=== PATIENT | male | born 1960 | race American Indian/Alaskan Native ===

== ENCOUNTER 2016-12-05 17:34 | Inpatient (IN) | payer MEDICARE ==
[2016-12-05 18:18] LABS: Basophils % (Auto) 2.3 % (0.0-1.8); Eosinophils % (Auto) 0.2 % (0.0-4.3); Hematocrit 25.5 % (35.5-45.6); Hemoglobin 7.5 gm/dl (11.8-15.2); Mean Corpuscular HGB Conc 30 % (32-34); Platelet Count 252 K/mm3 (140-440); White Blood Count 6.1 K/mm3 (4.5-11.0)
[2016-12-05 18:27] LABS: INR 1.2 (0.87-1.13)
[2016-12-05 18:28] LABS: Partial Thromboplastin Time 36.3 Sec. (24.2-36.6)
[2016-12-05 18:37] LABS: Mean Corpuscular Hemoglobin 18 pg (28-32); Mean Corpuscular Volume 59 fl (84-94); Red Cell Distribution Width 23.9 % (13.2-15.2)
[2016-12-05 18:46] LABS: Anion Gap 23 mmol/L; BUN/Creatinine Ratio 8.57; Blood Urea Nitrogen 6 mg/dL (9-20); Calcium 8.6 mg/dL (8.4-10.2); Carbon Dioxide 24 mmol/L (22-30); Chloride 96.2 mmol/L (98-107); Creatine Kinase 178 units/L (55-170); Glucose 83 mg/dL (75-100); Potassium 3.4 mmol/L (3.6-5.0); Sodium 140 mmol/L (137-145)
[2016-12-05] MEDS ORDERED: NACL ONE (21:48)
[2016-12-05] MEDS ORDERED: ATIVAN IV ONE (21:57)
[2016-12-05] MEDS ORDERED: BABY ASPIRIN PO ONE (22:03)
--- NOTE | 2016-12-05 22:07 | Emergency Department Report ---
ED Chest Pain HPI - General Chief Complaint: Chest Pain Stated Complaint: CHEST PAIN /SOB Time Seen by Provider: 12/05/16 21:08 Source: patient Mode of arrival: Ambulatory Limitations: No Limitations - History of Present Illness Initial Comments: Patient is a 66-year-old male with a history of PE on pradaxa, alcoholism, HTN, HLD, who presents to the ED for chest pain. Patient reports chest pain started yesterday as intermittent in sharp chest pain but now has progressed to constant substernal chest pain with radiation to the right shoulder associated shortness of breath. Exacerbated with movement and deep inspiration. Patient reports he is supposed to be taking Pradaxa daily for a PE he was diagnosed with last year, but has been noncompliant and takes it once every few days. Patient is also a alcoholic who reports drinking 4 beers today. Patient has been in withdrawal and has had seizures in the past from alcoholism. His last dose was this morning. Otherwise no fevers, headaches, chills, nausea, vomiting , back pain, abdominal pain, extremity pain, travel, or sick contacts. Severity scale (0 -10): 8 - Related Data Previous Rx's Medication Instructions Recorded Last Taken Type Cholecalciferol Vit D3 [Vitamin D3] 1,000 unit PO QDAY #30 tablet 06/26/1507/07 Rx Ferrous Sulfate [Feosol 325 MG tab] 325 mg PO BID #60 tablet 06/26/15 06/16/16 Rx Hydrochlorothiazide [HCTZ] 12.5 mg PO QDAY #30 capsule 06/26/15 06/16/16 Rx Famotidine [Pepcid] 20 mg PO DAILY #5 tablet 10/10/15 Unknown Rx Dabigatran [Pradaxa] 150 mg PO BID #60 capsule 06/20/16 06/16/16 Rx Hydrocortisone 2.5% [Proctosol-Hc] 1 applic TN Q8H PRN #20 tube 06/20/16 Unknown Rx HYDROcodone/APAP 10-325 [[place] 10 mg PO DAILY #7 tablet 06/30/16 Unknown Rx 10-325 mg TAB] Allergies Allergy/AdvReac Type Severity Reaction Status Date / Time Penicillins Allergy Swelling Verified 07/07/15 12:24 sildenafil citrate Allergy Swelling Verified 07/07/15 12:24 [From Viagra] simvastatin Allergy Swelling Verified 07/07/15 12:24 [place] score - [place] Score Age > 65: (0) No Aspirin use within the Past 7 Days: (0) No 3 or more CAD Risk Factors: (1) Yes 2 or more Angina events in past 24 hrs: (1) Yes Known CAD with more than 50% Stenosis: (0) No Elevated Cardiac Markers: (0) No ST Deviation Greater than 0.5mm: (0) No [place] Score: 2 ED Review of Systems ROS: Stated complaint: CHEST PAIN /SOB Other details as noted in HPI Comment: All other systems reviewed and negative ED Past Medical Hx - Past Medical History Hx Hypertension: Yes Hx Congestive Heart Failure: No Hx Diabetes: No Hx Deep Vein Thrombosis: Yes Hx Pulmonary Embolism: Yes Hx Arthritis: Yes Hx Psychiatric Treatment: Yes (PTSD/ DEPRESSION) Hx Asthma: No Hx COPD: No Additional medical history: Alcohol dependence. diverticulitis. fibromyalgia - Surgical History Hx Cholecystectomy: Yes Additional Surgical History: gastric bypass surgery. 2011. 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 - Social History Smoking Status: Never Smoker Substance Use Type: Alcohol - Medications Home Medications: Home Medications Medication Instructions Recorded Confirmed Last Taken Type Cholecalciferol Vit D3 [Vitamin D3] 1,000 unit PO QDAY #30 tablet 06/26/1512/0507/07/15 Rx Ferrous Sulfate [Feosol 325 MG tab] 325 mg PO BID #60 tablet 06/26/15 12/05/16 06/16/16 Rx Hydrochlorothiazide [HCTZ] 12.5 mg PO QDAY #30 capsule 06/26/15 12/05/16 Rx Famotidine [Pepcid] 20 mg PO DAILY #5 tablet 10/10/15 12/05/16 Unknown Rx Dabigatran [Pradaxa] 150 mg PO BID #60 capsule 06/20/16 12/05/16 06/16/16 Rx Hydrocortisone 2.5% [Proctosol-Hc] 1 applic TN Q8H PRN #20 tube 06/20/16 Unknown Rx HYDROcodone/APAP 10-325 [[place] 10 mg PO DAILY #7 tablet 06/30/16 12/05/16 Unknown Rx 10-325 mg TAB] ED Physical Exam - General Limitations: No Limitations General appearance: alert, in no apparent distress - Head Head exam: Present: atraumatic, normocephalic - Eye Eye exam: Present: normal appearance - ENT ENT exam: Present: mucous membranes moist - Neck Neck exam: Present: normal inspection - Respiratory Respiratory exam: Present: normal lung sounds bilaterally. Absent: respiratory distress, wheezes, rales, rhonchi, stridor - Cardiovascular Cardiovascular Exam: Present: regular rate, normal rhythm, normal heart sounds. Absent: irregular rhythm, systolic murmur, diastolic murmur, rubs, gallop - GI/Abdominal GI/Abdominal exam: Present: soft, normal bowel sounds - Rectal Rectal exam: Present: deferred - exam: Present: normal inspection, other (Rectal: Hemoccult: NEGATIVE, brown stool) External exam: Present: normal external exam - Extremities Exam Extremities exam: Present: normal inspection - Back Exam Back exam: Present: normal inspection - Neurological Exam Neurological exam: Present: alert, oriented X3 - Psychiatric Psychiatric exam: Present: normal affect, normal mood - Skin Skin exam: Present: warm, dry, intact, normal color. Absent: rash ED Course Vital Signs 12/05/16 12/05/16 12/05/16 17:52 21:45 22:21 Temperature 97.9 F Pulse Rate 98 H 91 H Respiratory 20 21 Rate Blood Pressure 123/85 142/85 O2 Sat by Pulse 100 98 98 Oximetry ED Medical Decision Making - Lab Data Result diagrams: 12/05/16 18:08 12/05/16 18:08 - EKG Data -: EKG Interpreted by Me (17:44) EKG shows normal: sinus rhythm, axis (normal axis), intervals (UTC 485 ms), ST- T waves (no ST changes, no STEMI) Rate: normal (96 bpm) - Radiology Data Radiology results: report reviewed - Medical Decision Making results of CTA discussed with the patient and family. pt now aware of borderline aneurysmal dilation, hgb of 7.5 Pt still c/o chest pain, ordered nitro SL, and PRN morphine if needed after SL nitro. Critical care attestation.: If time is entered above; I have spent that time in minutes in the direct care of this critically ill patient, excluding procedure time. ED Disposition Clinical Impression: Chest pain, Dyspnea, Anemia Disposition: OP ADMITTED IP TO THIS HOSP Is pt being admited?: Yes Condition: Stable
--- NOTE | 2016-12-05 22:52 | Cat Scan Report ---
FINAL REPORT PROCEDURE: CT ANGIO CHEST TECHNIQUE: Computerized tomographic angiography of the chest was performed during the IV injection of iodinated nonionic contrast including image processing. The image data was postprocessed using 2-dimensional multiplanar reformatted (MPR) and 3-dimensional (MIP and/or volume rendered) techniques. HISTORY: chest pain COMPARISON: Prior CT scan of the chest 05/14/2015 FINDINGS: Pulmonary outflow tract, right and left main pulmonary arteries and their proximal branches: Clear, no filling defects seen to suggest pulmonary embolus. Pericardium: No evidence of pericardial effusion. Thoracic aorta: There is mild prominence of the ascending thoracic aorta measuring 4 centimeter x 3.9 centimeter. No dissection is visualized. Coronary arteries: Are unremarkable. Mediastinum and hilar regions: Nonspecific subcentimeter lymph nodes are visualized. No pathologically enlarged lymph nodes or masses are identified. Lung Jean-Baptiste: There is minimal dependent atelectasis. There is mild fibrosis inferior medially in the right lower lobe. No acute infiltrates masses effusions or pneumothorax are visualized Upper abdomen: Liver density is diffusely decreased consistent with fatty infiltration. The gallbladder is surgically absent. Postsurgical changes are seen involving the stomach. Other: No acute bony abnormalities are seen. IMPRESSION: No evidence of pulmonary embolus. Mild prominence ascending thoracic aorta, borderline aneurysmal dilatation. No dissection is visualized. Minimal dependent atelectasis and fibrosis visualized as described. Fatty infiltration of the liver. Prior cholecystectomy.
[2016-12-05] MEDS ORDERED: MORPHINE IV ONE (23:18)
[2016-12-05] MEDS ORDERED: NITROSTAT SL PRN (23:21)
--- NOTE | 2016-12-05 23:53 | History and Physical Report ---
History of Present Illness Date of examination: 12/06/16 History of present illness: 56-year-old man with a history of fibromyalgia, PE, chronic pain who has been intermittently noncompliant with is Pradaxa comes emergency room with complaints of chest pain. Pain is in the left chest which she describes as someone standing on a stress, constant since yesterday, intensity 5/10, radiating to the left side of the neck, worse with activity and better at rest. He admits to nausea, shortness of breath, no diaphoresis or palpitation. Patient denies cough, abdominal pain, hematochezia, dysuria, frequency, focal weakness, dysarthria, fever chills, polydipsia polyuria, hot or cold intolerance , easy bruisability, or rash or bleeding from mucosal membrane, rhinorrhea, epistaxis, earache, tinnitus, blurry vision, eye discharge, anxiety, depression. Other review of systems negative PAST SURGICAL HISTORY: Tumor removed from behind to stop, cholecystectomy SOCIAL HISTORY: Drinks a lot, no tobacco or drugs FAMILY HISTORY: Hypertension Medications and Allergies Allergies Allergy/AdvReac Type Severity Reaction Status Date / Time Penicillins Allergy Swelling Verified 07/07/15 12:24 sildenafil citrate Allergy Swelling Verified 07/07/15 12:24 [From Viagra] simvastatin Allergy Swelling Verified 07/07/15 12:24 Home Medications Medication Instructions Recorded Confirmed Last Taken Type Cholecalciferol Vit D3 [Vitamin D3] 1,000 unit PO QDAY #30 tablet 06/26/1512/0507/07/15 Rx Ferrous Sulfate [Feosol 325 MG tab] 325 mg PO BID #60 tablet 06/26/15 12/05/16 06/16/16 Rx Hydrochlorothiazide [HCTZ] 12.5 mg PO QDAY #30 capsule 06/26/15 12/05/16 Rx Famotidine [Pepcid] 20 mg PO DAILY #5 tablet 10/10/15 12/05/16 Unknown Rx Dabigatran [Pradaxa] 150 mg PO BID #60 capsule 06/20/16 12/05/16 06/16/16 Rx Hydrocortisone 2.5% [Proctosol-Hc] 1 applic [place] Q8H PRN #20 tube 06/20/16 Unknown Rx HYDROcodone/APAP 10-325 [[place] 10 mg PO DAILY #7 tablet 06/30/16 12/05/16 Unknown Rx 10-325 mg TAB] Active Meds: Active Medications Nitroglycerin (Nitrostat) 0.4 mg SL .Q5MIN PRN PRN Reason: Chest Pain Exam - Physical Exam Narrative exam: Gen. appearance: Patient lying in bed, no apparent distress HEENT: Normocephalic, atraumatic, pupils equally round and reactive to light, extraocular movement intact, and no sclericterus,. No JVD or thyromegaly or nodule,neck supple, no carotid bruit ,mucous membranes moist, no exudate or erythema Heart: S1, S2, regular rate and rhythm Lungs: Clear to auscultation bilaterally, breathing comfortable Abdomen: Positive bowel sounds, nontender, nondistended, no organomegaly Extremity: +tremors, No edema, cyanosis, clubbing Skin: No rash, nodules, warm, dry Neuro: Oriented 3, cranial nerves II-12 intact, speech is fluent, motor and sensory intact - Constitutional Vitals: Temp Pulse Resp BP Pulse Ox 97.9 F 91 H 21 142/85 98 12/05/16 17:52 12/05/16 21:45 12/05/16 21:45 12/05/16 22:21 12/05/16 22:21 Results - Labs CBC & Chem 7: 12/05/16 18:08 12/07/16 03:58 Labs: Abnormal lab results 12/05/16 12/05/16 12/05/16 Range/Units 18:08 18:08 18:11 Hgb 7.5 L (11.8-15.2) gm/dl Hct 25.5 L (35.5-45.6) % MCV 59 L (84-94) fl MCH 18 L (28-32) pg MCHC 30 L (32-34) % RDW 23.9 H (13.2-15.2) % [place] % (Auto) 11.1 H (0.0-7.3) % Baso % (Auto) 2.3 H (0.0-1.8) % PT 15.1 H (12.2-14.9) Sec. INR 1.20 H (0.87-1.13) Potassium 3.4 L (3.6-5.0) mmol/L Chloride 96.2 L (98-107) mmol/L BUN 6 L (9-20) mg/dL Creatinine 0.7 L (0.8-1.5) mg/dL Total Creatine Kinase 178 H (55-170) units/L Plasma/Serum Alcohol (0-0.07) gm% 12/05/16 Range/Units 22:29 Hgb (11.8-15.2) gm/dl Hct (35.5-45.6) % MCV (84-94) fl MCH (28-32) pg MCHC (32-34) % RDW (13.2-15.2) % [place] % (Auto) (0.0-7.3) % Baso % (Auto) (0.0-1.8) % PT (12.2-14.9) Sec. INR (0.87-1.13) Potassium (3.6-5.0) mmol/L Chloride (98-107) mmol/L BUN (9-20) mg/dL Creatinine (0.8-1.5) mg/dL Total Creatine Kinase (55-170) units/L Plasma/Serum Alcohol 0.13 H (0-0.07) gm% - Imaging and Cardiology CT scan - chest: report reviewed Assessment and Plan Alcohol withdrawal Chest pain, rule out ACS Anemia History of PE Fibromyalgia Admits medicine Start Cipro protocol with IV Ativan Check cardiac enzymes, lipid profile and obtain stress test Dvt prophylaxis initiated, continue appropriate outpatient medications
[2016-12-06] MEDS ORDERED: MORPHINE ONE (00:50)
[2016-12-06] MEDS: MORPHINE IV PRN (03:29)
[2016-12-06] MEDS ORDERED: ATIVAN IV PRN (05:53)
[2016-12-06] MEDS: ATIVAN IV PRN ×3 (07:22→19:24)
--- NOTE | 2016-12-06 08:58 | XRay Report ---
CHEST TWO VIEWS: 12/05/16 17:34:00 CLINICAL: Chest pain. COMPARISON: 08/20/15 FINDINGS: Normal heart and pulmonary vasculature. The lungs are normally expanded and clear.Degenerative change in the spine. Moderate distention of the colon. IMPRESSION: No acute cardiopulmonary process.
[2016-12-06] MEDS ORDERED: LEXISCAN IV ONE ×2 (09:51→09:57)
[2016-12-06] MEDS: FEOSOL PO SCH ×2 (14:18→21:42)
[2016-12-06] MEDS: NORCO 10/325 PO SCH (14:19)
[2016-12-06] MEDS: PEPCID PO SCH (14:26)
[2016-12-06] MEDS: PRADAXA PO SCH ×2 (14:26→21:42)
[2016-12-06] MEDS: VITAMIN D3 PO SCH (14:26)
[2016-12-06] MEDS: HCTZ PO SCH (14:27)
--- NOTE | 2016-12-06 18:43 | Progress Note ---
Assessment and Plan 56-year-old man with a history of fibromyalgia, PE, chronic pain who has been intermittently noncompliant with is Pradaxa comes emergency room with complaints of chest pain. He had stress test today which is normal. He is getting monitored for alcohol withdrawal on CIWA protocol Alcohol withdrawal Chest pain, likely due to GERD Anemia, stable, likely from alcohol abuse History of PE Fibromyalgia - Continue CIWA protocol with IV Ativan - Stress test was normal - Continue cardiac Diet - Supportive care with IV fluid hydration - Continue Pradaxa for history of PE - Resumed on home medications - If patient remains stable clinically will discharge tomorrow Subjective Date of service: 12/06/16 Interval history: Patient seen and examined. Medical records and medication list reviewed. No acute event overnight noted by the RN. Patient has no new complaint Had a stress test this morning which is negative Discussed plan of care at bedside with patient. Objective - Exam Narrative Exam: GENERAL: well-developed and well-nourished -[place] male lying on bed appeared to be in no discomfort. HEENT: Normocephalic. Atraumatic. No conjunctival congestion or icterus. Patient has moist mucous membranes. NECK: Supple. Trachea midline. CHEST/LUNGS: Clear to auscultated bilaterally, breathing nonlabored. No wheezes crackles or rhonchi. HEART/CARDIOVASCULAR: Regular in rate and rhythm. S1 and S2 positive. ABDOMEN: Abdomen is soft, nontender. Patient has normal bowel sounds. SKIN: There is no rash. Warm and dry. NEURO: No focal motor deficit. Follows command. Has positive asterixis MUSCULOSKELETAL: No joint effusion or tenderness. EXTRIMITY: No edema, no cyanosis or clubbing. PSYCH: Cooperative. - Constitutional Vitals: Vital Signs - 12hr 12/06/16 12/06/16 12/06/16 07:26 09:48 10:07 Temperature Pulse Rate 94 H 111 H Pulse Rate [ 110 H Left] Respiratory 20 Rate Blood Pressure 167/101 151/90 Blood Pressure 181/93 [Left Arm] O2 Sat by Pulse 100 Oximetry 12/06/16 12/06/16 12/06/16 10:08 10:09 10:10 Temperature Pulse Rate 95 H 93 H 96 H Pulse Rate [ Left] Respiratory Rate Blood Pressure 147/88 152/88 147/87 Blood Pressure [Left Arm] O2 Sat by Pulse Oximetry 12/06/16 12/06/16 12/06/16 10:11 12:20 15:23 Temperature 98.1 F Pulse Rate 95 H Pulse Rate [ 87 Left] Respiratory 20 Rate Blood Pressure 145/89 Blood Pressure 140/70 [Left Arm] O2 Sat by Pulse 100 100 Oximetry 12/06/16 15:26 Temperature 98.0 F Pulse Rate Pulse Rate [ 87 Left] Respiratory 20 Rate Blood Pressure Blood Pressure 132/83 [Left Arm] O2 Sat by Pulse 99 Oximetry - Labs CBC & Chem 7: 12/05/16 18:08 12/05/16 18:08
[2016-12-07] MEDS: ATIVAN IV PRN ×4 (02:22→16:34)
[2016-12-07 04:32] LABS: Anion Gap 17 mmol/L; BUN/Creatinine Ratio 5.71; Blood Urea Nitrogen 4 mg/dL (9-20); Calcium 8.4 mg/dL (8.4-10.2); Carbon Dioxide 30 mmol/L (22-30); Chloride 94.6 mmol/L (98-107); Glucose 147 mg/dL (75-100); Potassium 3.4 mmol/L (3.6-5.0); Sodium 138 mmol/L (137-145)
--- NOTE | 2016-12-07 05:43 | Treadmill Report ---
MYOCARDIAL PERFUSION IMAGING STUDY Resting images revealed slightly diminished radioisotope activity in the inferior wall region. On post-Lexiscan, there is improvement in inferior wall radioisotope activity. There is some increased gastric uptake noted on the post-Lexiscan images. Left ventricular systolic function was noted to be around 53%. IMPRESSION: 1. This test is negative for myocardial ischemia. 2. Normal left ventricular systolic function. [facility]# [id number] PARESH/NTS
[2016-12-07] MEDS: NORCO 10/325 PO SCH (11:24)
[2016-12-07] MEDS: HCTZ PO SCH (11:25)
[2016-12-07] MEDS: VITAMIN D3 PO SCH (11:25)
[2016-12-07] MEDS: FEOSOL PO SCH ×2 (11:26→22:24)
[2016-12-07] MEDS: PEPCID PO SCH (11:26)
[2016-12-07] MEDS: PRADAXA PO SCH ×2 (11:26→22:25)
[2016-12-07] MEDS: ZOFRAN IV PRN (11:38)
--- NOTE | 2016-12-07 15:44 | Progress Note ---
Assessment and Plan 56-year-old man with a history of fibromyalgia, PE, chronic pain who has been intermittently noncompliant with is Pradaxa comes emergency room with complaints of chest pain. He had stress test which is normal. He is getting monitored for alcohol withdrawal on CIWA protocol Alcohol withdrawal Chest pain, likely due to GERD Anemia, stable, likely from alcohol abuse History of PE Fibromyalgia Hypokalemia - Continue CIWA protocol with IV Ativan - Stress test was normal, placed on pepcid - Continue cardiac Diet - Supportive care with IV fluid hydration - Continue Pradaxa for history of PE - Resumed on home medications Subjective Date of service: 12/07/16 Interval history: Patient seen and examined. Medical records and medication list reviewed. No acute event overnight noted by the RN. Patient has no new complaint Had a stress test this morning which is negative Discussed plan of care at bedside with patient. Objective - Exam Narrative Exam: GENERAL: well-developed and well-nourished -[place] male lying on bed appeared to be in no discomfort. HEENT: Normocephalic. Atraumatic. No conjunctival congestion or icterus. Patient has moist mucous membranes. NECK: Supple. Trachea midline. CHEST/LUNGS: Clear to auscultated bilaterally, breathing nonlabored. No wheezes crackles or rhonchi. HEART/CARDIOVASCULAR: Regular in rate and rhythm. S1 and S2 positive. ABDOMEN: Abdomen is soft, nontender. Patient has normal bowel sounds. SKIN: There is no rash. Warm and dry. NEURO: No focal motor deficit. Follows command. Has positive asterixis MUSCULOSKELETAL: No joint effusion or tenderness. EXTRIMITY: No edema, no cyanosis or clubbing. PSYCH: Cooperative. - Constitutional Vitals: Vital Signs - 12hr 12/07/16 12/07/16 12/07/16 04:49 10:00 13:00 Temperature 97.7 F 97.5 F L Pulse Rate [ 83 94 H 87 Apical] Respiratory 18 20 16 Rate Blood Pressure 129/75 128/72 [Left Arm] O2 Sat by Pulse 100 100 98 Oximetry - Labs CBC & Chem 7: 12/05/16 18:08 12/07/16 03:58 Labs: Abnormal lab results 12/07/16 Range/Units 03:58 Potassium 3.4 L (3.6-5.0) mmol/L Chloride 94.6 L (98-107) mmol/L BUN 4 L (9-20) mg/dL Creatinine 0.7 L (0.8-1.5) mg/dL Glucose 147 H (75-100) mg/dL
[2016-12-07] MEDS: K-DUR PO SCH (16:28)
[2016-12-07] MEDS: MORPHINE IV PRN (22:28)
[2016-12-08] MEDS: MORPHINE IV PRN ×3 (04:10→23:46)
[2016-12-08] MEDS: HCTZ PO SCH (09:58)
[2016-12-08] MEDS: FEOSOL PO SCH ×2 (09:58→22:47)
[2016-12-08] MEDS: PRADAXA PO SCH ×2 (09:58→22:45)
[2016-12-08] MEDS: K-DUR PO SCH (09:58)
[2016-12-08] MEDS: PEPCID PO SCH (09:59)
[2016-12-08] MEDS: VITAMIN D3 PO SCH (09:59)
[2016-12-08] MEDS: NORCO 10/325 PO SCH (10:57)
[2016-12-08] MEDS: ZOFRAN IV PRN (12:21)
--- NOTE | 2016-12-08 18:04 | Progress Note ---
Assessment and Plan 56-year-old man with a history of fibromyalgia, PE, chronic pain who has been intermittently noncompliant with is Pradaxa comes emergency room with complaints of chest pain. He had stress test which is normal. He is getting monitored for alcohol withdrawal on CIWA protocol Alcohol withdrawal Chest pain, likely due to GERD Anemia, stable, likely from alcohol abuse History of PE Fibromyalgia Hypokalemia, replace - Continue CIWA protocol with IV Ativan - Stress test was normal, placed on pepcid - Continue cardiac Diet - Supportive care with IV fluid hydration - Continue Pradaxa for history of PE - Resumed on home medications - PT eval Subjective Date of service: 12/08/16 Interval history: Patient seen and examined. Medical records and medication list reviewed. No acute event overnight noted by the RN. Patient has no new complaint Discussed plan of care at bedside with patient. Objective - Exam Narrative Exam: GENERAL: well-developed and well-nourished -[place] male lying on bed appeared to be in no discomfort. HEENT: Normocephalic. Atraumatic. No conjunctival congestion or icterus. Patient has moist mucous membranes. NECK: Supple. Trachea midline. CHEST/LUNGS: Clear to auscultated bilaterally, breathing nonlabored. No wheezes crackles or rhonchi. HEART/CARDIOVASCULAR: Regular in rate and rhythm. S1 and S2 positive. ABDOMEN: Abdomen is soft, nontender. Patient has normal bowel sounds. SKIN: There is no rash. Warm and dry. NEURO: No focal motor deficit. Follows command. Has positive asterixis MUSCULOSKELETAL: No joint effusion or tenderness. EXTRIMITY: No edema, no cyanosis or clubbing. PSYCH: Cooperative. - Constitutional Vitals: Vital Signs - 12hr 12/08/16 12/08/16 12/08/16 07:35 09:47 10:00 Temperature 97.9 F Pulse Rate [ 95 H Right Radial] Respiratory 16 Rate Respiratory 18 Rate [Chest] Respiratory 18 Rate [Neck] Blood Pressure 139/88 [Right Arm] Blood Pressure [Right Radial Artery] O2 Sat by Pulse 96 99 Oximetry 12/08/16 12/08/16 12:52 17:40 Temperature Pulse Rate [ 94 H 70 Right Radial] Respiratory 16 Rate Respiratory Rate [Chest] Respiratory Rate [Neck] Blood Pressure 136/70 [Right Arm] Blood Pressure 115/72 [Right Radial Artery] O2 Sat by Pulse 97 Oximetry - Labs CBC & Chem 7: 12/05/16 18:08 12/07/16 03:58
[2016-12-09 05:17] LABS: Anion Gap 16 mmol/L; BUN/Creatinine Ratio 13.75; Blood Urea Nitrogen 11 mg/dL (9-20); Calcium 8.9 mg/dL (8.4-10.2); Carbon Dioxide 32 mmol/L (22-30); Chloride 96.3 mmol/L (98-107); Glucose 65 mg/dL (75-100); Sodium 140 mmol/L (137-145)
[2016-12-09 05:39] LABS: Potassium 4.2 mmol/L (3.6-5.0)
--- NOTE | 2016-12-09 09:45 | Discharge Summary ---
Providers - Providers Date of Admission: 12/05/16 23:54 Date of discharge: 12/09/16 Attending physician: ALISSA BARBOZA 12/08/16 14:11 Physical Therapy Evaluation and Treat [CONS] Routine Comment: Reason For Exam: placement Primary care physician: USER EXPERIENCE ANALYST Hospitalization Condition: Stable Hospital course: 56-year-old man with a history of alcohol abuse, PE, chronic pain who has been intermittently noncompliant with his Pradaxa came to the emergency room with complaints of chest pain. He was evaluated by myocardial stress test which was normal. He was then monitored for alcohol withdrawal and placed on CIWA protocol. He was followed clinically and evaluated by PT. He was discharged with Pt/OT and recommended to continue outpt rahab for alcohol abuse. Discharge Diagnosis: Alcohol withdrawal Chest pain, likely due to GERD Anemia, stable, likely from chronic alcohol abuse History of PE, on anticoagualtion Hypokalemia, replaced Disposition: DC/TX HOME UNDER HOME HEALTH Time spent for discharge: 33 minutes Core Measure Documentation - Palliative Care Palliative Care/ Comfort Measures: Not Applicable - Core Measures Any of the following diagnoses?: none Exam - Physical Exam Narrative exam: GENERAL: well-developed and well-nourished -[place] male lying on bed appeared to be in no discomfort. HEENT: Normocephalic. Atraumatic. No conjunctival congestion or icterus. Patient has moist mucous membranes. NECK: Supple. Trachea midline. CHEST/LUNGS: Clear to auscultated bilaterally, breathing nonlabored. No wheezes crackles or rhonchi. HEART/CARDIOVASCULAR: Regular in rate and rhythm. S1 and S2 positive. ABDOMEN: Abdomen is soft, nontender. Patient has normal bowel sounds. SKIN: There is no rash. Warm and dry. NEURO: No focal motor deficit. Follows command. MUSCULOSKELETAL: No joint effusion or tenderness. EXTRIMITY: No edema, no cyanosis or clubbing. PSYCH: Cooperative. - Constitutional Vitals: Temp Pulse Resp BP Pulse Ox 98.6 F 96 H 16 122/80 96 12/09/16 07:25 12/09/16 07:25 12/09/16 07:25 12/09/16 07:25 12/09/16 07:25 Plan Activity: advance as tolerated Weight Bearing Status: Weight Bear as Tolerated Diet: low fat, low salt Special Instructions: follow up in rehab (for alcohol cessation) Follow up with: PRIMARY CARE, [Primary Care Provider] - 7 Days Prescriptions: Cholecalciferol Vit D3 [Vitamin D3] 1,000 unit PO QDAY #30 tablet Dabigatran [Pradaxa] 150 mg PO BID #60 capsule Ferrous Sulfate [Feosol 325 MG tab] 325 mg PO BID #60 tablet Hydrochlorothiazide [HCTZ] 12.5 mg PO QDAY #30 capsule HYDROcodone/APAP 10-325 [[place] 10-325 mg TAB] 10 mg PO DAILY #14 tablet
[2016-12-09] MEDS: FEOSOL PO SCH (09:47)
[2016-12-09] MEDS: PRADAXA PO SCH (09:47)
[2016-12-09] MEDS: NORCO 10/325 PO SCH (09:47)
[2016-12-09] MEDS: VITAMIN D3 PO SCH (09:47)
[2016-12-09] MEDS: HCTZ PO SCH (09:47)
[2016-12-09] MEDS: K-DUR PO SCH (09:47)
[2016-12-09] MEDS: PEPCID PO SCH (09:47)
[2016-12-09 13:05] VITALS: BP 110/68
== END 2016-12-09 13:15 | disposition home or self-care (01) | DRG 897 ==
LOC: ED 17:34 → 4A 23:54
PROVIDERS: ADMIT Internal Medicine; ATTEND Internal Medicine
DX: F10.239 Alcohol dependence with withdrawal, unspecified (principal); K21.9 Gastro-esophageal reflux disease without esophagitis; D64.9 Anemia, unspecified; M79.7 Fibromyalgia; I10 Essential (primary) hypertension; M19.90 Unspecified osteoarthritis, unspecified site; F43.10 Post-traumatic stress disorder, unspecified; F32.9 Major depressive disorder, single episode, unspecified; E87.6 Hypokalemia; E78.5 Hyperlipidemia, unspecified; Z88.0 Allergy status to penicillin; Z88.8 Allergy status to other drugs, medicaments and biological substances; Z86.718 Personal history of other venous thrombosis and embolism; Z86.711 Personal history of pulmonary embolism; Z79.01 Long term (current) use of anticoagulants; Z90.49 Acquired absence of other specified parts of digestive tract; Z79.899 Other long term (current) drug therapy; Z82.49 Family history of ischemic heart disease and other diseases of the circulatory system; Z91.14 Patient's other noncompliance with medication regimen
CPT/HCPCS: 36415; 71020; 71275; 78452; 80048; 80320; 82550; 82553; 83735; 84484; 85025; 85610; 85730; 93005; 93010; 93017; 94760; 96374; 96375; A9502; G0480; G8978-GP; G8979-GP; J2060; J2270; J2405; J2785; Q9967

== ENCOUNTER 2017-06-15 15:32 | Inpatient (IN) | payer MEDICARE ==
[2017-06-15] MEDS ORDERED: NACL 0.9% 1000 ML 1,000 ML IV ONE ×2 (15:38→19:57)
[2017-06-15 16:25] LABS: Hematocrit 29.1 % (35.5-45.6); Hemoglobin 9.1 gm/dl (11.8-15.2); Mean Corpuscular HGB Conc 31 % (32-34); Mean Corpuscular Volume 73 fl (84-94); Platelet Count 195 K/mm3 (140-440); Red Blood Count 4.01 M/mm3 (3.65-5.03); White Blood Count 9.4 K/mm3 (4.5-11.0)
[2017-06-15 16:26] LABS: Mean Corpuscular Hemoglobin 23 pg (28-32); Red Cell Distribution Width 26.7 % (13.2-15.2)
[2017-06-15 16:30] LABS: INR 1.05 (0.87-1.13)
[2017-06-15 16:31] LABS: Alanine Aminotransferase 12 units/L (7-56); Albumin 4.6 g/dL (3.9-5); Albumin/Globulin Ratio 1.2 %; Alkaline Phosphatase 61 units/L (35-129); Anion Gap 21 mmol/L; BUN/Creatinine Ratio 13; Blood Urea Nitrogen 9 mg/dL (9-20); Calcium 8.8 mg/dL (8.4-10.2); Carbon Dioxide 28 mmol/L (22-30); Chloride 96.5 mmol/L (98-107); Glucose 105 mg/dL (75-100); Lipase 31 units/L (13-60); Partial Thromboplastin Time 29.4 Sec. (24.2-36.6); Potassium 4.4 mmol/L (3.6-5.0); Sodium 141 mmol/L (137-145); Total Protein 8.3 g/dL (6.3-8.2)
[2017-06-15 17:56] LABS: Basophils % (Manual) 0 % (0.0-1.8); Blastocytes % (Manual) 0 %
[2017-06-15 17:57] LABS: Anisocytosis 1+; Eosinophils % (Manual) 0 % (0.0-4.3)
[2017-06-15 17:58] LABS: Diff Status Complete; Hypochromasia 1+; Platelet Estimate Consistent w Auto
[2017-06-15] MEDS ORDERED: ATIVAN IV ONE (19:57)
[2017-06-15] MEDS ORDERED: ZOFRAN IV ONE (19:57)
--- NOTE | 2017-06-15 20:03 | Emergency Department Report ---
ED GI Bleed HPI - General Chief complaint: GI Bleed Stated complaint: RECAL BLEEDING AND VOMITING Time Seen by Provider: 06/15/17 19:50 Source: patient Mode of arrival: Ambulatory Limitations: No Limitations - History of Present Illness Initial comments: Patient is 57 years old male, chronic alcohol abuse, history of PE on Paradoxa, presented today with nausea vomiting and shaking and passing josephine blood in stools started today. Patient stated that he is been drinking alcohol daily that he stop drinking for the last 2 days. Patient denied fever, chest pain, shortness of breath. No other complaints MD complaint: gross hematemesis, gross hematochezia -: Gradual Radiation: none - Related Data Previous Rx's Medication Instructions Recorded Last Taken Type Famotidine [Pepcid] 20 mg PO DAILY #5 tablet 10/10/15 Unknown Rx Cholecalciferol Vit D3 [Vitamin D3] 1,000 unit PO QDAY #30 tablet 12/09/16 Unknown Rx Dabigatran [Pradaxa] 150 mg PO BID #60 capsule 12/09/16 Unknown Rx Ferrous Sulfate [Feosol 325 MG tab] 325 mg PO BID #60 tablet 12/09/16 Unknown Rx HYDROcodone/APAP 10-325 [[place] 10 mg PO DAILY #14 tablet 12/09/16 Unknown Rx 10-325 mg TAB] Hydrochlorothiazide [HCTZ] 12.5 mg PO QDAY #30 capsule 12/09/16 Unknown Rx Allergies Allergy/AdvReac Type Severity Reaction Status Date / Time Penicillins Allergy Swelling Verified 07/07/15 12:24 sildenafil citrate Allergy Swelling Verified 07/07/15 12:24 [From Viagra] simvastatin Allergy Swelling Verified 07/07/15 12:24 ED Review of Systems ROS: Stated complaint: RECAL BLEEDING AND VOMITING Other details as noted in HPI Comment: All other systems reviewed and negative Constitutional: other (shaking). denies: chills, fever Respiratory: denies: cough, orthopnea, shortness of breath, SOB with exertion, SOB at rest, wheezing Cardiovascular: palpitations. denies: chest pain, dyspnea on exertion, orthopnea, edema, syncope, paroxysmal nocturnal dyspnea Gastrointestinal: hematemesis, hematochezia. denies: abdominal pain, nausea, vomiting, diarrhea, constipation, melena Skin: denies: rash Neurological: denies: headache, weakness, numbness, paresthesias ED Past Medical Hx - Past Medical History Hx Hypertension: Yes Hx Congestive Heart Failure: No Hx Diabetes: No Hx Deep Vein Thrombosis: Yes Hx Pulmonary Embolism: Yes Hx Arthritis: Yes Hx Psychiatric Treatment: Yes (PTSD/ DEPRESSION) Hx Asthma: No Hx COPD: No Additional medical history: Alcohol dependence. diverticulitis. fibromyalgia - Surgical History Hx Cholecystectomy: Yes Additional Surgical History: gastric bypass surgery. 2011. 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 - Social History Smoking Status: Never Smoker Substance Use Type: Alcohol - Medications Home Medications: Home Medications Medication Instructions Recorded Confirmed Last Taken Type Famotidine [Pepcid] 20 mg PO DAILY #5 tablet 10/10/15 12/05/16 Unknown Rx Cholecalciferol Vit D3 [Vitamin D3] 1,000 unit PO QDAY #30 tablet 12/09/16 Unknown Rx Dabigatran [Pradaxa] 150 mg PO BID #60 capsule 12/09/16 Unknown Rx Ferrous Sulfate [Feosol 325 MG tab] 325 mg PO BID #60 tablet 12/09/16 Unknown Rx HYDROcodone/APAP 10-325 [[place] 10 mg PO DAILY #14 tablet 12/09/16 Unknown Rx 10-325 mg TAB] Hydrochlorothiazide [HCTZ] 12.5 mg PO QDAY #30 capsule 12/09/16 Unknown Rx ED Physical Exam - General Limitations: No Limitations General appearance: alert, in no apparent distress - Head Head exam: Present: atraumatic, normocephalic, normal inspection - Eye Eye exam: Present: normal appearance, PERRL, EOMI - ENT ENT exam: Present: normal exam, normal orophraynx, mucous membranes dry - Neck Neck exam: Present: normal inspection, full ROM. Absent: tenderness, meningismus - Respiratory Respiratory exam: Present: normal lung sounds bilaterally. Absent: respiratory distress, wheezes, rales, rhonchi, chest wall tenderness, accessory muscle use, decreased breath sounds, prolonged expiratory - Cardiovascular Cardiovascular Exam: Present: regular rate, normal rhythm, normal heart sounds - GI/Abdominal GI/Abdominal exam: Present: soft, normal bowel sounds. Absent: distended, tenderness, guarding, rebound, rigid, organomegaly, mass, bruit, pulsatile mass - Rectal Rectal exam: Present: normal rectal tone, heme (+) stool, bloody stool. Absent : hemorrhoids, mass, tenderness - Extremities Exam Extremities exam: Present: normal inspection, full ROM, normal capillary refill - Back Exam Back exam: Present: normal inspection, CVA tenderness (L). Absent: full ROM, tenderness, CVA tenderness (R), paraspinal tenderness - Neurological Exam Neurological exam: Present: alert, oriented X3, CN II-XII intact, normal gait - Skin Skin exam: Present: warm, dry, intact ED Course Vital Signs 06/15/17 06/15/17 06/15/17 15:34 19:50 20:01 Temperature 97.9 F Pulse Rate 92 H 107 H 102 H Respiratory 18 16 15 Rate Blood Pressure 153/92 184/95 O2 Sat by Pulse 96 90 100 Oximetry 06/15/17 06/15/17 06/15/17 20:15 20:31 20:45 Temperature Pulse Rate 96 H 98 H 103 H Respiratory 21 12 16 Rate Blood Pressure 184/95 184/95 184/95 O2 Sat by Pulse 98 99 98 Oximetry 06/15/17 20:51 Temperature Pulse Rate Respiratory 22 Rate Blood Pressure O2 Sat by Pulse 98 Oximetry ED Medical Decision Making - Lab Data Result diagrams: 06/15/17 15:52 06/15/17 15:52 - EKG Data -: EKG Interpreted by Ar EKG shows normal: sinus rhythm Rate: tachycardia - EKG Data Interpretation: no acute changes - Medical Decision Making Discussed with Dr. Dipti Cortez for admission. She accepted to admit the patient to her service. Discussed with Dr. Morrison from GI Critical care attestation.: If time is entered above; I have spent that time in minutes in the direct care of this critically ill patient, excluding procedure time. ED Disposition Clinical Impression: GI bleed, Alcohol withdrawal Disposition: OP ADMIT IP TO THIS HOSP Is pt being admited?: Yes Condition: Stable Referrals: PRIMARY CARE, [Primary Care Provider] - 3-5 Days Forms: Accompanied Note
[2017-06-15] MEDS: 1: FOLVITE 1 MG, INFUVITE 10 ML, VITAMIN B-1 100 MG in NACL 0.9% 1000 ML 988.8 ML 2: NA IV SCH (20:40)
[2017-06-15] MEDS ORDERED: PROTONIX 80 MG in NACL 0.9% 100 ML IV SCH (22:00)
[2017-06-15] MEDS ORDERED: ATIVAN IV PRN ×2 (22:44)
--- NOTE | 2017-06-15 22:48 | History and Physical Report ---
History of Present Illness Date of examination: 06/15/17 History of present illness: 56-year-old man with a history of fibromyalgia, PE, chronic pain on Pradaxa comes emergency room with complaints of rectal bleed that started 2 weeks ago. Rectal bleed occurs with bowel movements, he has a history of internal hemorroids. He also developed hematemesis, small amounts x2 today. He drinls alot everyday, last drink was 2 days ago. Review Of Systems: Constitutional: no weight loss Ears, eyes, nose, mouth and throat: no nasal congestion, no nasal discharge, no sinus pressure, blurry vision, diplopia Neck: No neck pain or rigidity. Cardiovascular: chest pain, orthopnea, palpitations Respiratory: No shortness of breath, cough Gastrointestinal: abdominal pain Genitourinary : no dysuria, frequency , hematuria Musculoskeletal: no muscle ache Integumentary: no rash, no pruritis Neurological: no parathesias, focal weakness Endocrine: no cold or heat intolerance, no polyuria or polydipsia Hematologic/Lymphatic: no easy bruising, no easy bleeding, no gland swelling Allergic/Immunologic: no urticaria, no angioedema. PAST SURGICAL HISTORY: Tumor removed from behind to stomach, nose, cholecystectomy, gastric bypass SOCIAL HISTORY: Drinks a lot, no tobacco or drugs FAMILY HISTORY: Hypertension Medications and Allergies Allergies Allergy/AdvReac Type Severity Reaction Status Date / Time Penicillins Allergy Swelling Verified 07/07/15 12:24 sildenafil citrate Allergy Swelling Verified 07/07/15 12:24 [From Viagra] simvastatin Allergy Swelling Verified 07/07/15 12:24 Home Medications Medication Instructions Recorded Confirmed Last Taken Type Famotidine [Pepcid] 20 mg PO DAILY #5 tablet 10/10/15 12/05/16 Unknown Rx Cholecalciferol Vit D3 [Vitamin D3] 1,000 unit PO QDAY #30 tablet 12/09/16 Unknown Rx Dabigatran [Pradaxa] 150 mg PO BID #60 capsule 12/09/16 Unknown Rx Ferrous Sulfate [Feosol 325 MG tab] 325 mg PO BID #60 tablet 12/09/16 Unknown Rx HYDROcodone/APAP 10-325 [[place] 10 mg PO DAILY #14 tablet 12/09/16 Unknown Rx 10-325 mg TAB] Hydrochlorothiazide [HCTZ] 12.5 mg PO QDAY #30 capsule 12/09/16 Unknown Rx Active Meds: Active Medications Folic Acid 1 mg/ Multivitamins /Minerals 10 ml/ Thiamine HCl 100 mg/ Sodium Chloride 1,000 mls @ 125 mls/hr IV .BY DURATION [facility] Last Admin: 06/15/17 20:40 Dose: 125 mls/hr Sodium Chloride (Nacl 0.9% 1000 Ml) 1,000 mls @ 125 mls/hr IV .BY DURATION [facility] Pantoprazole Sodium 80 mg/ (Sodium Chloride) 100 mls @ 10 mls/hr IV DIRECT [facility] PRN Reason: 8 MG/HR Last Admin: 06/15/17 22:35 Dose: 8 mg/hr, 10 mls/hr Sodium Chloride (Nacl 0.45% 1000 Ml) 1,000 mls @ 75 mls/hr IV DIRECT [facility] Lorazepam (Ativan) 2 mg IV Q1HR PRN PRN Reason: CIWA-Ar 8-15 Lorazepam (Ativan) 4 mg IV Q1HR PRN PRN Reason: CIWA-Ar 16-25 Ondansetron HCl (Zofran) 4 mg IV Q8H PRN PRN Reason: N/V unrelieved by Reglan Exam - Physical Exam Narrative exam: Gen. appearance: Patient lying in bed, no apparent distress HEENT: Normocephalic, atraumatic, pupils equally round and reactive to light, extraocular movement intact, and no sclericterus,. No JVD or thyromegaly or nodule,neck supple, no carotid bruit ,mucous membranes moist, no exudate or erythema Heart: S1, S2, regular rate and rhythm Lungs: Clear to auscultation bilaterally, breathing comfortable Abdomen: Positive bowel sounds, nontender, nondistended, no organomegaly Extremity: +tremors, No edema, cyanosis, clubbing Skin: No rash, nodules, warm, dry Neuro: Oriented 3, cranial nerves II-12 intact, speech is fluent, motor and sensory intact - Constitutional Vitals: Temp Pulse Resp BP Pulse Ox 97.9 F 103 H 22 184/95 98 06/15/17 15:34 06/15/17 20:45 06/15/17 20:51 06/15/17 20:45 06/15/17 20:51 Results - Labs CBC & Chem 7: 06/15/17 23:00 06/15/17 15:52 Labs: Abnormal lab results 06/15/17 06/15/17 Range/Units 15:52 15:52 Hgb 9.1 L (11.8-15.2) gm/dl Hct 29.1 L (35.5-45.6) % MCV 73 L (84-94) fl MCH 23 L (28-32) pg MCHC 31 L (32-34) % RDW 26.7 H (13.2-15.2) % Seg Neuts % (Manual) 85.0 H (40.0-70.0) % Lymphocytes % (Manual) 12.0 L (13.4-35.0) % Seg Neutrophils # Man 8.0 H (1.8-7.7) K/mm3 Lymphocytes # (Manual) 1.1 L (1.2-5.4) K/mm3 Chloride 96.5 L (98-107) mmol/L Creatinine 0.7 L (0.8-1.5) mg/dL Glucose 105 H (75-100) mg/dL Total Protein 8.3 H (6.3-8.2) g/dL Assessment and Plan Assessment Rectal bleed and hematemesis Alcohol Abuse Anemia History of PE Fibromyalgia Plan Admit to medicine Start protonix drip, CIWA protocol with IV Ativan Hold pradaxa, check serial hemoglobin, consult GI, continue appropriate outpatient medications
[2017-06-15 23:29] LABS: Hematocrit 24.9 % (35.5-45.6); Hemoglobin 7.8 gm/dl (11.8-15.2)
[2017-06-16] MEDS: ZOFRAN IV PRN ×2 (01:19→23:49)
[2017-06-16 03:30] LABS: Hematocrit 24.2 % (35.5-45.6); Hemoglobin 7.6 gm/dl (11.8-15.2); Mean Corpuscular HGB Conc 32 % (32-34); Mean Corpuscular Volume 72 fl (84-94); Platelet Count 197 K/mm3 (140-440); Red Blood Count 3.35 M/mm3 (3.65-5.03); White Blood Count 7.3 K/mm3 (4.5-11.0)
[2017-06-16 03:32] LABS: Mean Corpuscular Hemoglobin 23 pg (28-32); Red Cell Distribution Width 26.7 % (13.2-15.2)
[2017-06-16 03:46] LABS: Anion Gap 15 mmol/L; BUN/Creatinine Ratio 10; Blood Urea Nitrogen 8 mg/dL (9-20); Calcium 8.2 mg/dL (8.4-10.2); Carbon Dioxide 30 mmol/L (22-30); Glucose 89 mg/dL (75-100); Potassium 3.8 mmol/L (3.6-5.0); Sodium 143 mmol/L (137-145)
[2017-06-16 04:13] LABS: Anisocytosis 3+; Blastocytes % (Manual) 0 %; Eosinophils % (Manual) 0 % (0.0-4.3)
[2017-06-16 04:14] LABS: Diff Status Complete; Hypochromasia 1+; Platelet Estimate Consistent w Auto; Poikilocytosis Few; Target Cells Rare; Tear Drop Cells Few
[2017-06-16] MEDS: NACL 0.45% 1000 ML 1,000 ML IV SCH (04:26)
[2017-06-16 06:41] LABS: Hemoglobin 7.7 gm/dl (11.8-15.2)
[2017-06-16] MEDS: 1: FOLVITE 1 MG, INFUVITE 10 ML, VITAMIN B-1 100 MG in NACL 0.9% 1000 ML 988.8 ML 2: NA IV SCH ×3 (08:15→22:19)
[2017-06-16] MEDS: VITAMIN D3 PO SCH (09:11)
[2017-06-16] MEDS: FEOSOL PO SCH ×2 (09:11→22:07)
[2017-06-16 12:48] LABS: Hematocrit 25.4 % (35.5-45.6)
[2017-06-16] MEDS: PERCOCET 5/325 PO PRN ×2 (13:34→22:08)
--- NOTE | 2017-06-16 16:43 | Consultation ---
History of Present Illness - Reason for Consult Consult date: 06/16/17 Medications and Allergies Allergies Allergy/AdvReac Type Severity Reaction Status Date / Time Penicillins Allergy Swelling Verified 07/07/15 12:24 sildenafil citrate Allergy Swelling Verified 07/07/15 12:24 [From Viagra] simvastatin Allergy Swelling Verified 07/07/15 12:24 Home Medications Medication Instructions Recorded Confirmed Last Taken Type Famotidine [Pepcid] 20 mg PO DAILY #5 tablet 10/10/15 12/05/16 Unknown Rx Cholecalciferol Vit D3 [Vitamin D3] 1,000 unit PO QDAY #30 tablet 12/09/16 Unknown Rx Dabigatran [Pradaxa] 150 mg PO BID #60 capsule 12/09/16 Unknown Rx Ferrous Sulfate [Feosol 325 MG tab] 325 mg PO BID #60 tablet 12/09/16 Unknown Rx HYDROcodone/APAP 10-325 [[place] 10 mg PO DAILY #14 tablet 12/09/16 Unknown Rx 10-325 mg TAB] Hydrochlorothiazide [HCTZ] 12.5 mg PO QDAY #30 capsule 12/09/16 Unknown Rx Active Meds: Active Medications Cholecalciferol (Vitamin D3) 1,000 unit PO QDAY [facility] Last Admin: 06/16/17 09:11 Dose: 1,000 unit Ferrous Sulfate (Feosol) 325 mg PO BID [facility] Last Admin: 06/16/17 09:11 Dose: 325 mg Folic Acid 1 mg/ Multivitamins /Minerals 10 ml/ Thiamine HCl 100 mg/ Sodium Chloride 1,000 mls @ 125 mls/hr IV .BY DURATION [facility] Last Admin: 06/15/17 20:40 Dose: 125 mls/hr Sodium Chloride (Nacl 0.9% 1000 Ml) 1,000 mls @ 125 mls/hr IV .BY DURATION [facility] Last Admin: 06/16/17 08:15 Dose: 125 mls/hr Pantoprazole Sodium 80 mg/ (Sodium Chloride) 100 mls @ 10 mls/hr IV DIRECT [facility] PRN Reason: 8 MG/HR Last Admin: 06/15/17 22:35 Dose: 8 mg/hr, 10 mls/hr Sodium Chloride (Nacl 0.45% 1000 Ml) 1,000 mls @ 75 mls/hr IV DIRECT [facility] Last Admin: 06/16/17 04:26 Dose: 75 mls/hr Lorazepam (Ativan) 2 mg IV Q1HR PRN PRN Reason: CIWA-Ar 8-15 Last Admin: 06/16/17 01:19 Dose: 2 mg Lorazepam (Ativan) 4 mg IV Q1HR PRN PRN Reason: CIWA-Ar 16-25 Ondansetron HCl (Zofran) 4 mg IV Q8H PRN PRN Reason: N/V unrelieved by Reglan Last Admin: 06/16/17 01:19 Dose: 4 mg Oxycodone/Acetaminophen (Percocet 5/325) 1 tab PO Q6H PRN PRN Reason: Pain, Moderate (4-6) Last Admin: 06/16/17 13:34 Dose: 1 tab Exam - Constitutional Vitals: Temp Pulse Resp BP Pulse Ox 98.2 F 89 18 141/92 98 06/16/17 15:24 06/16/17 15:25 06/16/17 15:24 06/16/17 15:24 06/16/17 15:25 Results - Labs CBC & Chem 7: 06/16/17 12:35 06/16/17 02:53 Labs: Abnormal lab results 06/15/17 06/16/17 06/16/17 Range/Units 23:00 02:53 02:53 RBC 3.35 L (3.65-5.03) M/mm3 Hgb 7.8 L 7.6 L (11.8-15.2) gm/dl Hct 24.9 L 24.2 L (35.5-45.6) % MCV 72 L (84-94) fl MCH 23 L (28-32) pg RDW 26.7 H (13.2-15.2) % Monocytes % (Manual) 11.0 H (0.0-7.3) % Basophils % (Manual) 2.0 H (0.0-1.8) % BUN 8 L (9-20) mg/dL Calcium 8.2 L (8.4-10.2) mg/dL 06/16/17 06/16/17 Range/Units 06:13 12:35 RBC (3.65-5.03) M/mm3 Hgb 7.7 L 8.0 L (11.8-15.2) gm/dl Hct 25.0 L 25.4 L (35.5-45.6) % MCV (84-94) fl MCH (28-32) pg RDW (13.2-15.2) % Monocytes % (Manual) (0.0-7.3) % Basophils % (Manual) (0.0-1.8) % BUN (9-20) mg/dL Calcium (8.4-10.2) mg/dL Assessment and Plan See Dictated note. Awaiting evidence of visible bleeding - stool to be saved for my inspection. Will check iron and B12.
--- NOTE | 2017-06-16 18:13 | Progress Note ---
Assessment and Plan Assessment and plan: --Rectal bleeding; patient reports active bleeding today Hemodynamically stable, has history of independent hemorrhoids --Hematemesis;; IV Protonix, clear liquid diet, GI evaluation --History of alcohol abuse; counseling done, advised to quit --History of PE; on chronic anticoagulation, Pradaxa held in view of GI bleeding --History of fibromyalgia; continue current management --DVT prophylaxis; SCDs Follow GI evaluation and recommendation Plan of care discussed with the patient and his nurse History Interval history: Patient seen and examined medical records reviewed Admitted with rectal bleeding Patient reports active bleeding Vital signs reviewed stable Hospitalist Physical - Constitutional Vitals: Temp Pulse Resp BP Pulse Ox 98.2 F 102 H 18 141/92 98 06/16/17 15:24 06/16/17 17:59 06/16/17 15:24 06/16/17 15:24 06/16/17 15:25 General appearance: Present: no acute distress, well-nourished - EENT Eyes: Present: PERRL, EOM intact - Neck Neck: Present: supple, normal ROM - Respiratory Respiratory effort: normal Respiratory: negative: rales, rhonchi, wheezing - Cardiovascular Rhythm: regular Heart Sounds: Present: S1 & S2 - Extremities Extremities: no ischemia, No edema - Abdominal General gastrointestinal: soft, non-tender, non-distended, normal bowel sounds - Integumentary Integumentary: Present: clear, warm - Psychiatric Psychiatric: appropriate mood/affect, cooperative - Neurologic Neurologic: CNII-XII intact, moves all extremities Results - Labs CBC & Chem 7: 06/16/17 12:35 06/16/17 02:53 Labs: Laboratory Last Values WBC 7.3 K/mm3 (4.5-11.0) 06/16/17 02:53 RBC 3.35 M/mm3 (3.65-5.03) L 06/16/17 02:53 Hgb 8.0 gm/dl (11.8-15.2) L 06/16/17 12:35 Hct 25.4 % (35.5-45.6) L 06/16/17 12:35 MCV 72 fl (84-94) L 06/16/17 02:53 MCH 23 pg (28-32) L 06/16/17 02:53 MCHC 32 % (32-34) 06/16/17 02:53 RDW 26.7 % (13.2-15.2) H 06/16/17 02:53 Plt Count 197 K/mm3 (140-440) 06/16/17 02:53 Add Manual Diff Complete 06/16/17 02:53 Total Counted 100 06/16/17 02:53 Seg Neuts % (Manual) 66.0 % (40.0-70.0) 06/16/17 02:53 Band Neutrophils % 0 % 06/16/17 02:53 Lymphocytes % (Manual) 21.0 % (13.4-35.0) 06/16/17 02:53 Reactive Lymphs % (Man) 0 % 06/16/17 02:53 Monocytes % (Manual) 11.0 % (0.0-7.3) H 06/16/17 02:53 Eosinophils % (Manual) 0 % (0.0-4.3) 06/16/17 02:53 Basophils % (Manual) 2.0 % (0.0-1.8) H 06/16/17 02:53 Metamyelocytes % 0 % 06/16/17 02:53 Myelocytes % 0 % 06/16/17 02:53 Promyelocytes % 0 % 06/16/17 02:53 Blast Cells % 0 % 06/16/17 02:53 Nucleated RBC % Not Reportable 06/16/17 02:53 Seg Neutrophils # Man 4.8 K/mm3 (1.8-7.7) 06/16/17 02:53 Band Neutrophils # 0.0 K/mm3 06/16/17 02:53 Lymphocytes # (Manual) 1.5 K/mm3 (1.2-5.4) 06/16/17 02:53 Abs React Lymphs (Man) 0.0 K/mm3 06/16/17 02:53 Monocytes # (Manual) 0.8 K/mm3 (0.0-0.8) 06/16/17 02:53 Eosinophils # (Manual) 0.0 K/mm3 (0.0-0.4) 06/16/17 02:53 Basophils # (Manual) 0.1 K/mm3 (0.0-0.1) 06/16/17 02:53 Metamyelocytes # 0.0 K/mm3 06/16/17 02:53 Myelocytes # 0.0 K/mm3 06/16/17 02:53 Promyelocytes # 0.0 K/mm3 06/16/17 02:53 Blast Cells # 0.0 K/mm3 06/16/17 02:53 WBC Morphology Not Reportable 06/16/17 02:53 Hypersegmented Neuts Not Reportable 06/16/17 02:53 Hyposegmented Neuts Not Reportable 06/16/17 02:53 Hypogranular Neuts Not Reportable 06/16/17 02:53 Smudge Cells Not Reportable 06/16/17 02:53 Toxic Granulation Not Reportable 06/16/17 02:53 Toxic Vacuolation Not Reportable 06/16/17 02:53 Dohle Bodies Not Reportable 06/16/17 02:53 Pelger-Huet Anomaly Not Reportable 06/16/17 02:53 Christina Rods Not Reportable 06/16/17 02:53 Platelet Estimate Consistent w auto 06/16/17 02:53 Clumped Platelets Not Reportable 06/16/17 02:53 Plt Clumps, EDTA Not Reportable 06/16/17 02:53 Large Platelets Not Reportable 06/16/17 02:53 Giant Platelets Not Reportable 06/16/17 02:53 Platelet Satelliting Not Reportable 06/16/17 02:53 Plt Morphology Comment Not Reportable 06/16/17 02:53 RBC Morphology Not Reportable 06/16/17 02:53 Dimorphic RBCs Not Reportable 06/16/17 02:53 Polychromasia Not Reportable 06/16/17 02:53 Hypochromasia 1+ 06/16/17 02:53 Poikilocytosis Few 06/16/17 02:53 Anisocytosis 3+ 06/16/17 02:53 Microcytosis Not Reportable 06/16/17 02:53 Macrocytosis Not Reportable 06/16/17 02:53 Spherocytes Not Reportable 06/16/17 02:53 Pappenheimer Bodies Not Reportable 06/16/17 02:53 Sickle Cells Not Reportable 06/16/17 02:53 Target Cells Rare 06/16/17 02:53 Tear Drop Cells Few 06/16/17 02:53 Ovalocytes Not Reportable 06/16/17 02:53 Helmet Cells Not Reportable 06/16/17 02:53 [place] Bodies Not Reportable 06/16/17 02:53 Switchback Rings Not Reportable 06/16/17 02:53 Mounika Cells Not Reportable 06/16/17 02:53 Bite Cells Not Reportable 06/16/17 02:53 Crenated Cell Not Reportable 06/16/17 02:53 Elliptocytes Not Reportable 06/16/17 02:53 Acanthocytes (Spur) Not Reportable 06/16/17 02:53 Rouleaux Not Reportable 06/16/17 02:53 Hemoglobin C Crystals Not Reportable 06/16/17 02:53 Schistocytes Not Reportable 06/16/17 02:53 Malaria parasites Not Reportable 06/16/17 02:53 Jak Bodies Not Reportable 06/16/17 02:53 Hem Pathologist Commnt No 06/16/17 02:53 PT 14.2 Sec. (12.2-14.9) 06/15/17 15:52 INR 1.05 (0.87-1.13) 06/15/17 15:52 APTT 29.4 Sec. (24.2-36.6) 06/15/17 15:52 Sodium 143 mmol/L (137-145) 06/16/17 02:53 Potassium 3.8 mmol/L (3.6-5.0) 06/16/17 02:53 Chloride 102.0 mmol/L (98-107) 06/16/17 02:53 Carbon Dioxide 30 mmol/L (22-30) 06/16/17 02:53 Anion Gap 15 mmol/L 06/16/17 02:53 BUN 8 mg/dL (9-20) L 06/16/17 02:53 Creatinine 0.8 mg/dL (0.8-1.5) 06/16/17 02:53 Estimated GFR > 60 ml/min 06/16/17 02:53 BUN/Creatinine Ratio 10 % 06/16/17 02:53 Glucose 89 mg/dL (75-100) 06/16/17 02:53 Calcium 8.2 mg/dL (8.4-10.2) L 06/16/17 02:53 Total Bilirubin 1.20 mg/dL (0.1-1.2) 06/15/17 15:52 AST 29 units/L (5-40) 06/15/17 15:52 ALT 12 units/L (7-56) 06/15/17 15:52 Alkaline Phosphatase 61 units/L (35-129) 06/15/17 15:52 Total Protein 8.3 g/dL (6.3-8.2) H 06/15/17 15:52 Albumin 4.6 g/dL (3.9-5) 06/15/17 15:52 Albumin/Globulin Ratio 1.2 % 06/15/17 15:52 Lipase 31 units/L (13-60) 06/15/17 15:52 Plasma/Serum Alcohol < 0.01 gm% (0-0.07) 06/15/17 15:52 Blood Type B POSITIVE 06/15/17 15:52 Antibody Screen Negative 06/15/17 15:52
[2017-06-16 18:52] LABS: Iron 351 ug/dL (49-181); Total Iron Binding Capacity 404 mcg/dL (250-450)
[2017-06-17] MEDS: 1: FOLVITE 1 MG, INFUVITE 10 ML, VITAMIN B-1 100 MG in NACL 0.9% 1000 ML 988.8 ML 2: NA IV SCH (04:31)
[2017-06-17 05:48] LABS: Hematocrit 26.5 % (35.5-45.6); Hemoglobin 8.3 gm/dl (11.8-15.2); Mean Corpuscular HGB Conc 31 % (32-34); Mean Corpuscular Volume 74 fl (84-94); Platelet Count 185 K/mm3 (140-440); Red Blood Count 3.57 M/mm3 (3.65-5.03); White Blood Count 7.8 K/mm3 (4.5-11.0)
[2017-06-17 05:54] LABS: Basophils % (Auto) 0.9 % (0.0-1.8); Eosinophils % (Auto) 3.9 % (0.0-4.3); Mean Corpuscular Hemoglobin 23 pg (28-32); Red Cell Distribution Width 27.1 % (13.2-15.2)
[2017-06-17] MEDS: NACL 0.45% 1000 ML 1,000 ML IV SCH (10:19)
[2017-06-17] MEDS: PERCOCET 5/325 PO PRN (10:19)
--- NOTE | 2017-06-17 10:23 | Consultation ---
REASON FOR CONSULTATION: GI bleed. HISTORY OF PRESENT ILLNESS: The patient is a 57-year-old man, who drinks alcohol on a daily basis and states he quit two days earlier. He presented complaining of 2-week history of vomiting blood and having hematochezia with bright red blood running out of his bottom. He states for the last 2 days he has been having nausea and vomiting. He states he felt weak as well. There was no chest pain or shortness of breath. Of note, the patient was seen by me for the same complaints in 06/18/2016 at which time he was noted to have light brown stool on rectal exam, though he was complaining of rectal bleeding every several months since the . He underwent an upper endoscopy and flexible sigmoidoscopy on 06/19/2016, which showed that he is status post gastric bypass with a 4 cm gastric pouch, and flexible sigmoidoscopy showed moderate external hemorrhoids. No blood was noted. He was anemic at that time with hemoglobin of 8.2. He is on Pradaxa for history of DVT and PE in the past and states he was told not to come off of it. Currently, the patient states he had bright red blood per rectum just this morning. He has had a history of nosebleeds in the past, but denies any recently. There has been no weight loss. There is no history of aspirin or nonsteroidal usage. ALLERGIES: He is allergic to PENICILLIN, SIMVASTATIN, and VIAGRA. MEDICATIONS: At home; he is on Pradaxa as well as iron tablets, multivitamins, hydrochlorothiazide, Pepcid, and hydrocodone. PAST MEDICAL HISTORY: He has history: 1. Gastric bypass in 2011. 2. Cholecystectomy in 2013. 3. DVT with history of pulmonary embolism. 4. Chronic pain. 5. Hypertension. 6. History of hemorrhoidectomy in . 7. History of alcoholic pancreatitis in 06/2015. FAMILY HISTORY: Noncontributory. SOCIAL HISTORY: He denies tobacco use, but he continues to drink alcohol on a daily basis. REVIEW OF SYSTEMS: Otherwise, negative. PHYSICAL EXAMINATION: GENERAL: This is a well-developed, well-nourished black male, sitting up, in no apparent distress, but agitated because of the bleeding history. VITAL SIGNS: Temperature is 98.2, pulse 89, blood pressure is 141/92. HEENT: He is anicteric. Pupils are round and reactive. Oropharynx is clear. LUNGS: Clear bilaterally to auscultation. CARDIOVASCULAR: Regular with no extra heart sounds. ABDOMEN: Soft with good bowel sounds and no organomegaly. He complains of mild tenderness to deep palpation in the epigastrium. RECTAL: Showed no masses and light brown stool on the gloved finger with no evidence of blood. EXTREMITIES: Reveal no edema. NEUROLOGIC: He is alert, oriented x 3. Grossly nonfocal. LABORATORY DATA: White count is 7.3, hemoglobin is 8.0, hematocrit 25.4, MCV of 72, platelet count of 197,000. Sodium 143, potassium 3.8, chloride 102, bicarbonate 30, BUN 8, creatinine 0.8, glucose is 89. On admission; his AST was 29, ALT 12, alkaline phosphatase 61, total bilirubin of 1.2, albumin of 4.6. Blood alcohol level was nondetectable this time. IMPRESSION: Rectal bleed-there is no evidence on exam. If he truly has been having bleeding as he describes, and had bright red blood even this morning, there should have been visible blood on the rectal exam. His hemoglobin is also stable over the last year, though it had been normal at 12.3 in 08/2015. The patient is on Pradaxa, which could certainly allow him to bleed if he had a predisposing event, but currently I find no evidence. As regards the history of hematemesis, this could have been a Sherron-Prather tear or epistaxis with swallowed blood. Given the lack of corroborating evidence of significant bleed with no elevation of BUN to creatinine ratio, and no evidence of blood, visually on exam, I will take an expectant approach. I had already discussed last year having him stop the Pradaxa, and I will defer that to the primary physician and the hospitalist. PLAN: Advance diet and monitor for rectal bleeding. If there is indeed evidence of josephine GI bleeding, we will proceed with endoscopic evaluation. Otherwise, we will check iron studies and B12 stores as the patient may well be malabsorbing due to his bypass and therefore having anemia. JOB# [id number] HRC/NTS
[2017-06-17] MEDS: VITAMIN D3 PO SCH (10:44)
[2017-06-17 14:53] VITALS: BP 134/90
--- NOTE | 2017-06-17 16:48 | Progress Note ---
Assessment and Plan 1. Rectal bleeding - description of stool is c/w anorectal source, and likely the hemorrhoids noted on FS in 06/2016. Brown stool is inconsistent with GI bleed higher up. H/H stable, though anemic. Discussed with pt and offered to do FS or colonoscopy for verification, but advised him that based on last year' s FS, would likely need surgical evaluation by Colorectal Surgery. Pt decided to see PCP in AM, and was advised to ensure he saw Colorectal Surgery this week , shaunna since he remains on Pradaxa. - okay to D/C to home with plan as above 2. Anemia - etiology unclear. No iron deficiency. - after addressing rectal bleed, would recommend Hematology evaluation. Subjective Date of service: 06/17/17 Interval history: Pt is having BMs described as dark brown with BRB on TP and some clots in bowl, per pt and RN. No pain. Objective - Constitutional Vitals: Vital Signs - 12hr 06/17/17 06/17/17 06/17/17 08:00 10:00 12:00 Temperature 98.4 F 98.4 F Pulse Rate 100 H 102 H 89 Respiratory 18 18 Rate Blood Pressure 135/93 134/90 [Left] O2 Sat by Pulse 99 99 Oximetry General appearance: Present: no acute distress - EENT Eyes: PERRL, EOM intact ENT: hearing intact - Respiratory Respiratory effort: normal - Gastrointestinal General gastrointestinal: Present: soft, non-tender - Labs CBC & Chem 7: 06/17/17 04:44 06/16/17 02:53 Labs: Abnormal lab results 06/16/17 06/17/17 Range/Units 17:58 04:44 RBC 3.57 L (3.65-5.03) M/mm3 Hgb 8.3 L (11.8-15.2) gm/dl Hct 26.5 L (35.5-45.6) % MCV 74 L (84-94) fl MCH 23 L (28-32) pg MCHC 31 L (32-34) % RDW 27.1 H (13.2-15.2) % Mccormick % (Auto) 9.2 H (0.0-7.3) % Iron 351 H (49-181) ug/dL
--- NOTE | 2017-06-17 17:05 | Discharge Summary ---
Providers - Providers Date of Admission: 06/15/17 22:41 Date of discharge: 06/17/17 Attending physician: RICCARDO EGAN Primary care physician: SURGICAL MANAGER Hospitalization Reason for admission: Rectal bleeding Condition: Stable Hospital course: 56-year-old male patient with significant past medical history of fibromyalgia pulmonary embolism on anticoagulation chronic pain syndrome was admitted through emergency room with rectal bleeding Patient was admitted to the hospital symptomatically managed, hemoglobin and hematocrit closely monitored, Pradaxa was discontinued, evaluated by GI, managed with IV fluids and IV Protonix Patient's symptoms significantly improved, however continued to have mild rectal bleeding. Hemodynamically stable, hemoglobin levels low stable ,Iron profile consistent with, high iron level, ferrous sulfate is discontinued. GI recommended colorectal surgical evaluation, patient wanted to see his primary care physician tomorrow and plan to see colorectal surgeon. Today he is comfortable in bed, hemodynamically stable, cleared by GI for discharge. Adviced to follow with primary care physician, GI and colorectal surgeon per schedule. Counseling done patient advised to quit alcohol intake, verbalized understanding Discharge diagnosis: --Rectal bleeding; --History of alcohol abuse; counseling done, advised to quit --History of PE; on chronic anticoagulation, Pradaxa held in view of GI bleeding --History of fibromyalgia; Disposition: DC-01 TO HOME OR SELFCARE Time spent for discharge: 32 min Core Measure Documentation - Palliative Care Palliative Care/ Comfort Measures: Not Applicable - Core Measures Any of the following diagnoses?: none Exam - Constitutional Vitals: Temp Pulse Resp BP Pulse Ox 98.4 F 89 18 134/90 99 06/17/17 12:00 06/17/17 12:00 06/17/17 12:00 06/17/17 12:00 06/17/17 12:00 General appearance: Present: no acute distress, well-nourished - EENT Eyes: Present: PERRL, EOM intact - Neck Neck: Present: supple, normal ROM - Respiratory Respiratory effort: normal Respiratory: negative: rales, rhonchi, wheezing - Cardiovascular Rhythm: regular Heart Sounds: Present: S1 & S2 - Extremities Extremities: no ischemia, No edema - Abdominal General gastrointestinal: Present: soft, non-tender, non-distended, normal bowel sounds - Integumentary Integumentary: Present: clear, warm - Musculoskeletal Musculoskeletal: strength equal bilaterally - Psychiatric Psychiatric: appropriate mood/affect, cooperative - Neurologic Neurologic: CNII-XII intact, moves all extremities Plan Activity: no restrictions Diet: low salt Additional Instructions: Avoid NSAIDs. If you notice rectal bleeding, contact M.D. or go to emergency room. See colorectal surgeon for further evaluation and management. f/u GI 1-2 weeks or as needed. Do not take Pradaxa if you have bleeding, contact Kevin.John. before resuming Pradaxa Follow up with: [facility] [Provider Group] - 7 Days PRIMARY CARE, [Primary Care Provider] - 3-5 Days Forms: Accompanied Note
[2017-06-18] MEDS ORDERED: PROTONIX PO SCH (10:00)
== END 2017-06-17 17:53 | disposition home or self-care (01) | DRG 378 ==
LOC: ED 15:32 → 4A 22:41
PROVIDERS: ADMIT Internal Medicine; ATTEND Internal Medicine
DX: K92.2 Gastrointestinal hemorrhage, unspecified (principal); F10.239 Alcohol dependence with withdrawal, unspecified; M79.7 Fibromyalgia; G89.4 Chronic pain syndrome; M19.90 Unspecified osteoarthritis, unspecified site; F32.9 Major depressive disorder, single episode, unspecified; D64.9 Anemia, unspecified; F43.10 Post-traumatic stress disorder, unspecified; Z90.49 Acquired absence of other specified parts of digestive tract; Z88.0 Allergy status to penicillin; Z86.711 Personal history of pulmonary embolism; Z79.01 Long term (current) use of anticoagulants; Z71.41 Alcohol abuse counseling and surveillance of alcoholic; Z86.718 Personal history of other venous thrombosis and embolism; Z98.84 Bariatric surgery status; Z79.899 Other long term (current) drug therapy; Z82.49 Family history of ischemic heart disease and other diseases of the circulatory system
CPT/HCPCS: 36415; 80048; 80053; 80320; 82607; 82728; 83550; 83690; 85007; 85014; 85018; 85025; 85610; 85730; 86850; 86900; 86901; 93005; 93010; C9113; G0480; J2060; J2405; J3411; J7030

== ENCOUNTER 2018-01-16 14:35 | Inpatient (IN) | payer MEDICARE ==
[2018-01-16] MEDS ORDERED: TYLENOL #3 PO ONE (19:17)
[2018-01-16] MEDS ORDERED: MOTRIN PO ONE (19:17)
--- NOTE | 2018-01-16 19:25 | Emergency Department Report ---
ED Fall HPI - General Chief Complaint: Fall Stated Complaint: PAIN/RIGHT SIDE/FELL Time Seen by Provider: 01/16/18 19:17 Source: patient Mode of arrival: Ambulatory - History of Present Illness Initial Comments: This is a 57-year-old male nontoxic, well nourished in appearance, no acute signs of distress presents to the ED with c/o of right lower leg pain and lower back pain pain status post fall that occurred yesterday. Patient stated that he tripped on a side walk and fell on his back and right leg area. Patient stated that he did not have any trauma to the head or any other extremities. Patient denies any joint redness, joint swelling, fever, chills, nausea, vomiting, chest pain or shortness breath. Patient denies abnormal or decreased gait. Patient stated allergies to PCN, Viagra, and Simvastin. PMH includes arthritis, DVT, hypertension. MD Complaint: fall -: Last night Fall From: standing When Fall Occurred: unsure Fall Witnessed: yes, by family Place Fall Occurred: street Loss of Consciousness: none Prolonged Down Time?: no Symptoms Prior to Fall: none Location - Extremities: Right: Knee, Leg, Ankle, Foot Severity: mild Severity scale (0 -10): 8 Quality: aching Context: tripped/slipped Associated Symptoms: denies. denies: headache, neck pain, numbness, weakness, chest paint, shortness of breath, abdominal pain, hematuria, unable to walk, lightheaded, vertigo, confusion - Related Data Previous Rx's Medication Instructions Recorded Last Taken Type Famotidine [Pepcid] 20 mg PO DAILY #5 tablet 10/10/15 1 Day Ago Rx ~06/16/17 Cholecalciferol Vit D3 [Vitamin D3] 1,000 unit PO QDAY #30 tablet 12/09/16 1 Day Ago Rx ~06/16/17 Hydrochlorothiazide [HCTZ] 12.5 mg PO QDAY #30 capsule 12/09/16 1 Day Ago Rx ~06/16/17 Cyclobenzaprine [Flexeril] 10 mg PO BID PRN #10 tablet 01/16/18 Unknown Rx Ibuprofen [Motrin] 600 mg PO Q8H PRN #30 tablet 01/16/18 Unknown Rx Allergies Allergy/AdvReac Type Severity Reaction Status Date / Time Penicillins Allergy Swelling Verified 07/07/15 12:24 sildenafil citrate Allergy Swelling Verified 07/07/15 12:24 [From Viagra] simvastatin Allergy Swelling Verified 07/07/15 12:24 ED Review of Systems ROS: Stated complaint: PAIN/RIGHT SIDE/FELL Other details as noted in HPI Constitutional: denies: chills, fever Eyes: denies: eye pain, eye discharge, vision change ENT: denies: ear pain, throat pain Respiratory: denies: cough, shortness of breath, wheezing Cardiovascular: denies: chest pain, palpitations Endocrine: no symptoms reported Gastrointestinal: denies: abdominal pain, nausea, diarrhea Genitourinary: denies: urgency, dysuria Musculoskeletal: back pain, arthralgia. denies: joint swelling Skin: denies: rash, lesions Neurological: denies: headache, weakness, paresthesias Psychiatric: denies: anxiety, depression Hematological/Lymphatic: denies: easy bleeding, easy bruising ED Past Medical Hx - Past Medical History Previous Medical History?: Yes Hx Hypertension: Yes Hx Congestive Heart Failure: No Hx Diabetes: No Hx Deep Vein Thrombosis: Yes Hx Pulmonary Embolism: Yes Hx Arthritis: Yes Hx Psychiatric Treatment: Yes (PTSD/ DEPRESSION) Hx Asthma: No Hx COPD: No Additional medical history: Alcohol dependence. diverticulitis. fibromyalgia - Surgical History Past Surgical History?: Yes Hx Cholecystectomy: Yes Additional Surgical History: gastric bypass surgery. 2011. 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 - Social History Smoking Status: Never Smoker Substance Use Type: Alcohol, Prescribed - Medications Home Medications: Home Medications Medication Instructions Recorded Confirmed Last Taken Type Famotidine [Pepcid] 20 mg PO DAILY #5 tablet 10/10/15 06/17/17 1 Day Ago Rx ~06/16/17 Cholecalciferol Vit D3 [Vitamin D3] 1,000 unit PO QDAY #30 tablet 12/09/1606/17 1 Day Ago Rx ~06/16/17 Hydrochlorothiazide [HCTZ] 12.5 mg PO QDAY #30 capsule 12/09/16 06/17/17 1 Day Ago Rx ~06/16/17 Cyclobenzaprine [Flexeril] 10 mg PO BID PRN #10 tablet 01/16/18 Unknown Rx Ibuprofen [Motrin] 600 mg PO Q8H PRN #30 tablet 01/16/18 Unknown Rx ED Physical Exam - General Limitations: Physical Limitation General appearance: alert, in no apparent distress - Head Head exam: Present: atraumatic, normocephalic - Eye Eye exam: Present: normal appearance Pupils: Present: normal accommodation - ENT ENT exam: Present: normal exam, mucous membranes moist - Neck Neck exam: Present: normal inspection, full ROM. Absent: tenderness, meningismus, lymphadenopathy - Respiratory Respiratory exam: Present: normal lung sounds bilaterally. Absent: respiratory distress, wheezes, rales, rhonchi, stridor, chest wall tenderness, accessory muscle use, decreased breath sounds, prolonged expiratory - Cardiovascular Cardiovascular Exam: Present: regular rate, normal rhythm, normal heart sounds. Absent: bradycardia, tachycardia, irregular rhythm, systolic murmur, diastolic murmur, rubs, gallop - GI/Abdominal GI/Abdominal exam: Present: soft, normal bowel sounds. Absent: distended, tenderness, guarding, rebound, rigid, diminished bowel sounds - Rectal Rectal exam: Present: deferred - Extremities Exam Extremities exam: Present: normal inspection, full ROM, tenderness, normal capillary refill. Absent: joint swelling, calf tenderness - Expanded Lower Extremity Exam Right Hip exam: Present: normal inspection, full ROM, external rotation, internal rotation, pelvic stability. Absent: tenderness, swelling, abrasion, laceration , ecchymosis, deformity, crepidus, dislocation, erythema, shortening Upper Leg exam: Present: normal inspection, full ROM, tenderness. Absent: swelling, abrasion, laceration, ecchymosis, deformity, crepidus, dislocation, erythema Knee exam: Present: normal inspection, full ROM, tenderness, abrasion, full knee extension. Absent: swelling, laceration, ecchymosis, deformity, crepidus, dislocation, erythema, effusion, pain w/ pronation/supination, posterior draw sign, pain/laxity with valgus, pain/laxity with varus Lower Leg exam: Present: normal inspection, full ROM, tenderness. Absent: swelling, abrasion, laceration, ecchymosis, deformity, crepidus, dislocation, erythema, palpable cord, Hernandez's sign Ankle exam: Present: normal inspection, full ROM, tenderness, swelling. Absent : abrasion, laceration, ecchymosis, deformity, crepidus, dislocation, erythema, anterior draw sign Foot/Toe exam: Present: normal inspection, full ROM, tenderness, swelling, abrasion. Absent: laceration, ecchymosis, deformity, crepidus, dislocation, erythema, amputation, puncture wound, foreign body, calcaneal tenderness, tenderness at base of 5th metatarsal, nail avulsion, subungual hematoma Neuro vascular tendon exam: Present: no vascular compromise. Absent: pulse deficit, abnormal cap refill, motor deficit, sensory deficit, tendon deficit, extremity cold to touch, pallor, abnormal 2-point discrimination, foot drop, peroneal nerve deficit, significant pain with passive ROM of distal joint Gait: Positive: observed and limited by pain - Back Exam Back exam: Present: normal inspection, full ROM, paraspinal tenderness (lumbar region). Absent: tenderness, CVA tenderness (R), CVA tenderness (L), muscle spasm, vertebral tenderness, rash noted - Expanded Back Exam Expanded Back exam: Absent: saddle anesthesia Back exam: Negative Straight Leg Raising: Left, Right - Neurological Exam Neurological exam: Present: alert, oriented X3, CN II-XII intact, normal gait - Psychiatric Psychiatric exam: Present: normal affect, normal mood - Skin Skin exam: Present: warm, dry, intact, normal color. Absent: rash ED Course Vital Signs 01/16/18 01/16/18 16:00 19:45 Temperature 98.4 F Pulse Rate 79 Respiratory 18 18 Rate Blood Pressure 130/80 O2 Sat by Pulse 96 Oximetry - Reevaluation(s) Reevaluation #1: 01/16/18 19:26 Patient is speaking in full sentences with no signs of distress noted. - Consultations Consultation #1: 01/16/18 21:29 Patient stated he is going through withdraw from alcohol. Labs ordered. Medications ordered. Patient was signed out to Dr. Johnson and put to main side ED for further treatment. ED Medical Decision Making - Lab Data Result diagrams: 01/16/18 21:29 01/16/18 21:29 - Medical Decision Making This is a 57-year-old male that presents with 5th metatarsal fracture and low back strain. Patient is stable and was examined by me. I referred patient to an orthopedic doctor for further evaluation for possible MRI. X-ray has been obtained and dictated by the radiologist. Patient is notified of the x-ray report with noted by the patient. Patient does have normal gait with no tenderness and no joint swelling. No ecchymosis. no joint redness or swelling. Not warm to touch. No signs of cellulites present. Patient received a posterior short leg splint and crutches and was educated by RN how to use crutches. Post splint assessment: neurovasular intact; normal cap refill <2 second; normal sensation; denies decreaed sensation; normal ROM of digits. Patient was instructed to RICE therapy. Patient received Motrin for pain and Tylenol No. 3 Patient stated he is having nausea with vomiting and is trying to stop drinking alcohol. Patient stated last alcohol intake was yesterday and he is currently drinking alcohol for the "many years". CIWA score is grading then 8. Labs ordered. Ativan PRN ordered. 1L NS ordered. EKG ordered. personnel monitor ordered. Patient was put to main side ED for continuing care of ED physicin. Report given to Nelson Rodríguez At time of transfer, the patient does not seem toxic or ill in appearance. No acute signs of distress noted. Patient agrees to ED plan of care. No further questions noted by the patient. Critical care attestation.: If time is entered above; I have spent that time in minutes in the direct care of this critically ill patient, excluding procedure time. ED Disposition Clinical Impression: Dehydration Fall Qualifiers: Encounter type: initial encounter Qualified Code(s): W19.XXXA - Unspecified fall, initial encounter Low back strain Qualifiers: Encounter type: initial encounter Qualified Code(s): S39.012A - Strain of muscle, fascia and tendon of lower back, initial encounter Fracture of 5th metatarsal Qualifiers: Encounter type: initial encounter Fracture type: closed Fracture alignment: nondisplaced Laterality: right Qualified Code(s): S92.354A - Nondisplaced fracture of fifth metatarsal bone, right foot, initial encounter for closed fracture Alcohol withdrawal Qualifiers: Complication of substance-induced condition: uncomplicated Qualified Code(s): F10.230 - Alcohol dependence with withdrawal, uncomplicated Intractable vomiting with nausea Qualifiers: Vomiting type: unspecified Qualified Code(s): R11.2 - Nausea with vomiting, unspecified Pancreatitis Qualifiers: Chronicity: acute Pancreatitis type: unspecified pancreatitis type Acute pancreatitis complication: unspecified Qualified Code(s): K85.90 - Acute pancreatitis without necrosis or infection, unspecified Disposition: DC-09 OP ADMIT IP TO THIS HOSP Is pt being admited?: Yes Condition: Fair Additional Instructions: Follow-up with a orthopedic doctor in 3-5 days or if symptoms worsen and continue return to emergency room as soon as possible. Take ibuprofen and Flexeril as prescribed. Do not operate heavy machinery while taking Flexeril due to sedation Rest, elevate, and ice extremity. Prescriptions: Cyclobenzaprine [Flexeril] 10 mg PO BID PRN #10 tablet PRN Reason: Muscle Spasm Ibuprofen [Motrin] 600 mg PO Q8H PRN #30 tablet PRN Reason: Pain Referrals: AWA MCCARTNEY MD [Primary Care Provider] - 3-5 Days
--- NOTE | 2018-01-16 20:36 | XRay Report ---
FINAL REPORT PROCEDURE: XR SPINE LUMBOSACRAL 2-3V TECHNIQUE: Lumbar spine radiographs, frontal and lateral views. CPT 81988 HISTORY: fall with back pain COMPARISON: No prior studies are available for comparison. FINDINGS: Alignment: Normal . Vertebral body heights/Disk spaces: The heights of the vertebral bodies and the disc spaces are maintained. There is slight spur formation off the vertebral bodies from the L2 through the L5 vertebral levels.. Fracture(s): None . Facets: Normal . Bone mineralization: Mild generalized osteopenia. IMPRESSION: There is no evidence of an acute fracture or dislocation. Mild lumbar spondylosis. Mild generalized osteopenia.
--- NOTE | 2018-01-16 20:37 | XRay Report ---
FINAL REPORT PROCEDURE: XR HUMERUS 2+V RT TECHNIQUE: RIGHT humerus radiographs, AP and lateral views. HISTORY: fall with arm pain COMPARISON: No prior studies are available for comparison. FINDINGS: Fracture (s) and/or Dislocation(s): None . Joint space(s): Minimal narrowing of joint spaces. Soft tissues: Normal. Bone mineralization: Normal. Foreign bodies: None. IMPRESSION: There is no evidence of an acute fracture or dislocation. Mild arthritis.
--- NOTE | 2018-01-16 20:38 | XRay Report ---
FINAL REPORT PROCEDURE: XR KNEE 3V RT TECHNIQUE: RIGHT knee radiographs, AP, lateral and oblique views. CPT 99769 HISTORY: fall with knee pain COMPARISON: No prior studies are available for comparison. FINDINGS: Fracture (s) and/or Dislocation(s): None . Alignment: Normal . Joint space(s): There is mild narrowing of the medial joint compartment. There is slight narrowing of the patellofemoral joint space. Mild spur formation off of the osseous structures is noted.. Soft tissues: Normal . Bone mineralization: Normal . Foreign bodies: None . IMPRESSION: There is no evidence of an acute fracture or dislocation. Mild arthritis as described..
--- NOTE | 2018-01-16 20:51 | XRay Report ---
FINAL REPORT PROCEDURE: XR TIBIA FIBULA 2V RT TECHNIQUE: RIGHT tibia and fibula radiographs, AP and lateral views. CPT 18276 HISTORY: fall with leg pain COMPARISON: No prior studies are available for comparison. FINDINGS: Fracture (s) and/or Dislocation(s): None . Joint space(s): There is mild narrowing of the joint spaces of the knee and ankle. Mild spur formation off of the osseous structures.. Soft tissues: Normal . Bone mineralization: Normal . Foreign bodies: None . IMPRESSION: There is no evidence of an acute fracture or dislocation. Mild arthritis..
--- NOTE | 2018-01-16 20:52 | XRay Report ---
FINAL REPORT PROCEDURE: XR ANKLE 3+V RT TECHNIQUE: RIGHT ankle radiographs, AP, lateral, and oblique views. CPT 05930 HISTORY: fall with ankle pain COMPARISON: No prior studies are available for comparison. FINDINGS: Fracture (s) and/or Dislocation(s): None. Alignment: Normal. Joint space(s): There is mild narrowing of the joint spaces. Spur formation off the osseous structures is noted.. Soft tissues: Slight soft tissue swelling over the ankle globally. Bone mineralization: Normal. Foreign bodies: None. Calcaneal spurring: Large inferior spur is noted. IMPRESSION: There is no evidence of an acute fracture or dislocation. Mild arthritis. Mild diffuse soft tissue swelling..
--- NOTE | 2018-01-16 20:57 | XRay Report ---
FINAL REPORT PROCEDURE: XR FOOT 3+V RT TECHNIQUE: RIGHT foot radiographs, AP, lateral, and oblique views. CPT 46686 HISTORY: fall with foot pain COMPARISON: No prior studies are available for comparison. FINDINGS: Fracture (s) and/or Dislocation(s): There is some irregularity with lucency through the head of the 5th metatarsal. A slightly impacted fracture in this region is suspected. The remaining osseous structures appear intact.. Alignment: Normal . Joint space(s): Moderate narrowing of the joint spaces is noted. Slight spur formation off the osseous structures.. Soft tissues: Mild soft tissue swelling over the ankle diffusely.. Bone mineralization: Normal . Foreign bodies: None . Calcaneal spurring: There is a large inferior spur. IMPRESSION: Slightly impacted fracture head of the 5th metatarsal is suspected as described. Mild arthritis..
[2018-01-16] MEDS ORDERED: ATIVAN IV PRN ×3 (21:19)
[2018-01-16 21:41] LABS: Basophils # (Auto) 0.1 K/mm3 (0.0-0.1); Basophils % (Auto) 1.1 % (0.0-1.8); Eosinophils % (Auto) 0.4 % (0.0-4.3); Hemoglobin 10.6 gm/dl (11.8-15.2); Lymphocytes # (Auto) 1.3 K/mm3 (1.2-5.4); Lymphocytes % (Auto) 13.7 % (13.4-35.0); Mean Corpuscular HGB Conc 31 % (32-34); Mean Corpuscular Volume 72 fl (84-94); Monocytes # (Auto) 0.9 K/mm3 (0.0-0.8); Monocytes % (Auto) 9.4 % (0.0-7.3); Platelet Count 297 K/mm3 (140-440); Red Blood Count 4.72 M/mm3 (3.65-5.03)
[2018-01-16 21:45] LABS: Mean Corpuscular Hemoglobin 22 pg (28-32); Red Cell Distribution Width 21.7 % (13.2-15.2)
[2018-01-16 22:04] LABS: Alanine Aminotransferase 10 units/L (7-56); Albumin 4.2 g/dL (3.9-5); BUN/Creatinine Ratio 11; Blood Urea Nitrogen 8 mg/dL (9-20); Calcium 8.6 mg/dL (8.4-10.2); Hemolysis Index 5; Lipase 150 units/L (13-60)
[2018-01-16 22:05] LABS: Bilirubin,Direct < 0.2 mg/dL (0-0.2)
[2018-01-16] MEDS ORDERED: VITAMIN B-1 100 MG, FOLVITE 1 MG, INFUVITE 10 ML in NACL 0.9% 1000 ML 1,000 ML IV ONE (22:08)
[2018-01-16] MEDS ORDERED: NACL 0.9% 1000 ML 1,000 ML IV ONE (22:16)
[2018-01-16] MEDS ORDERED: ZOFRAN IV ONE ×2 (22:25→22:27)
--- NOTE | 2018-01-16 22:30 | Emergency Department Report ---
HPI - General Chief Complaint: Fall Time Seen by Provider: 01/16/18 19:17 - HPI HPI: The patient is a 57-year-old male who presented for evaluation of right-sided muscle skeletal pain status post fall. The patient was evaluated by [facility] The patient received multiple imaging of his traumatic complaints, and he was found to have a right Marsh fracture in the foot. He was given pain medicine and was placed in a posterior splint. The patient's care was transferred to myself from the [facility] as the patient began developing tremors. On my evaluation the patient complains of constant cramping upper abdominal pain for the past day, moderate to severe, exacerbated with retching, and associated with nausea and multiple episodes of clear watery nonbilious, nonbloody emesis. The patient also complains of uncontrollable shaking of the hands and arms with movement, also since this afternoon. He states that his symptoms are secondary to alcohol withdrawal. He states that he has not consumed alcohol within the past 24 hours. The patient denies fever, head injury , headache, neck pain, neck stiffness, vision or hearing changes, smell or taste changes, paresthesias, facial drooping, slurred speech, seizure-like activity, chest pain, dyspnea, urine or bowel incontinence or retention, or other focal neurological deficit. ED Past Medical Hx - Past Medical History Previous Medical History?: Yes Hx Hypertension: Yes Hx Congestive Heart Failure: No Hx Diabetes: No Hx Deep Vein Thrombosis: Yes Hx Pulmonary Embolism: Yes Hx Arthritis: Yes Hx Psychiatric Treatment: Yes (PTSD/ DEPRESSION) Hx Asthma: No Hx COPD: No Additional medical history: Alcohol dependence. diverticulitis. fibromyalgia - Surgical History Past Surgical History?: Yes Hx Cholecystectomy: Yes Additional Surgical History: gastric bypass surgery. 2011. 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 - Social History Smoking Status: Never Smoker Substance Use Type: Alcohol, Prescribed - Medications Home Medications: Home Medications Medication Instructions Recorded Confirmed Last Taken Type Famotidine [Pepcid] 20 mg PO DAILY #5 tablet 10/10/15 06/17/17 1 Day Ago Rx ~06/16/17 Cholecalciferol Vit D3 [Vitamin D3] 1,000 unit PO QDAY #30 tablet 12/09/1606/17 1 Day Ago Rx ~06/16/17 Hydrochlorothiazide [HCTZ] 12.5 mg PO QDAY #30 capsule 12/09/16 06/17/17 1 Day Ago Rx ~06/16/17 Cyclobenzaprine [Flexeril] 10 mg PO BID PRN #10 tablet 01/16/18 Unknown Rx Ibuprofen [Motrin] 600 mg PO Q8H PRN #30 tablet 01/16/18 Unknown Rx ED Review of Systems ROS: Stated complaint: PAIN/RIGHT SIDE/FELL Other details as noted in HPI Constitutional: reports tremor denies: fever ENT: denies: throat or neck pain Respiratory: denies: cough, shortness of breath Cardiovascular: denies: chest pain Endocrine: denies unexplained weight loss or gain Gastrointestinal: reports abdominal pain, nausea Genitourinary: denies: dysuria Musculoskeletal: reports right lateral foot pain denies: leg swelling Skin: denies: rash Neurological: denies: headache Hematological/Lymphatic: denies: easy bleeding or easy bruising Psych: denies sadness or hopelessness Constitutional: denies: chills, fever Eyes: denies: eye pain, eye discharge, vision change ENT: denies: ear pain, throat pain Respiratory: denies: cough, shortness of breath, wheezing Cardiovascular: denies: chest pain, palpitations Endocrine: no symptoms reported Gastrointestinal: denies: abdominal pain, nausea, diarrhea Genitourinary: denies: urgency, dysuria Musculoskeletal: back pain, arthralgia. denies: joint swelling Skin: denies: rash, lesions Neurological: denies: headache, weakness, paresthesias Psychiatric: denies: anxiety, depression Hematological/Lymphatic: denies: easy bleeding, easy bruising Physical Exam - Physical Exam Vital Signs: Vital Signs 01/16/18 01/16/18 16:00 19:45 Temperature 98.4 F Pulse Rate 79 Respiratory 18 18 Rate Blood Pressure 130/80 O2 Sat by Pulse 96 Oximetry Physical Exam: General: well-nourished, well-developed, no acute distress Head: Normocephalic, atraumatic Eyes: normal sclera ENT: Mucous membranes are pale and dry Neck: trachea midline, neck supple, No neck stiffness, no cervical adenopathy Respiratory: Breath sounds equal bilaterally, no wheezing, rales, or rhonchi Cardio: S1 and S2 present, no murmurs, rubs, gallops, capillary refill is brisk Abdomen: Normoactive bowel sounds, soft abdomen, epigastric tenderness to palpation present, no rigidity, no guarding or rebound tenderness Musc: No pitting edema Skin: No rash Neuro: Positive intention tremor of the upper extremities present, minimal tremor at rest, alert oriented 3, no facial drooping, normal speech, no pronator drift, no obvious gross sensation and motor deficit on neurologic exam , reflexes hyperactive on DTR testing of the upper extremities Psych: Normal affect ED Course Vital Signs 01/16/18 01/16/18 16:00 19:45 Temperature 98.4 F Pulse Rate 79 Respiratory 18 18 Rate Blood Pressure 130/80 O2 Sat by Pulse 96 Oximetry ED Medical Decision Making - Lab Data Result diagrams: 01/16/18 21:29 01/16/18 21:29 - Medical Decision Making The patient was seen and examined by myself. The patient is placed on a cardiac monitor technician and continuous pulse ox. On initial evaluation, the patient was found to be in no distress. Evaluation orders are placed. IV access is established and the patient is given 1 L normal saline fluid bolus for treatment of his dehydration, and Zofran for nausea, and IV analgesic for pain Lab results revealed elevated lipase level of 150, and otherwise labs were non- concerning including WBC, hemoglobin, hematocrit, electrolytes, renal function, LFTs. The patient is given IV Ativan for treatment of his acute alcohol withdrawal. The patient was reevaluated and remained with nausea, vomiting, and intention tremor despite medications. As the patient has intractable vomiting and tremor, he will be admitted for alcohol withdrawal. Dr. Islas, the physician on-call for the hospitalist service was contacted. He agreed to admit the patient. The patient was admitted in guarded condition. Critical care attestation.: If time is entered above; I have spent that time in minutes in the direct care of this critically ill patient, excluding procedure time. ED Disposition Clinical Impression: Dehydration, Tremor due to drug withdrawal Fall Qualifiers: Encounter type: initial encounter Qualified Code(s): W19.XXXA - Unspecified fall, initial encounter Low back strain Qualifiers: Encounter type: initial encounter Qualified Code(s): S39.012A - Strain of muscle, fascia and tendon of lower back, initial encounter Fracture of 5th metatarsal Qualifiers: Encounter type: initial encounter Fracture type: closed Fracture alignment: nondisplaced Laterality: right Qualified Code(s): S92.354A - Nondisplaced fracture of fifth metatarsal bone, right foot, initial encounter for closed fracture Alcohol withdrawal Qualifiers: Complication of substance-induced condition: uncomplicated Qualified Code(s): F10.230 - Alcohol dependence with withdrawal, uncomplicated Intractable vomiting with nausea Qualifiers: Vomiting type: unspecified Qualified Code(s): R11.2 - Nausea with vomiting, unspecified Pancreatitis Qualifiers: Chronicity: acute Pancreatitis type: unspecified pancreatitis type Acute pancreatitis complication: unspecified Qualified Code(s): K85.90 - Acute pancreatitis without necrosis or infection, unspecified Disposition: OP ADMIT IP TO THIS HOSP Is pt being admited?: Yes Does the pt Need Aspirin: Yes Condition: Fair Additional Instructions: Follow-up with a orthopedic doctor in 3-5 days or if symptoms worsen and continue return to emergency room as soon as possible. Take ibuprofen and Flexeril as prescribed. Do not operate heavy machinery while taking Flexeril due to sedation Rest, elevate, and ice extremity. Prescriptions: Cyclobenzaprine [Flexeril] 10 mg PO BID PRN #10 tablet PRN Reason: Muscle Spasm Ibuprofen [Motrin] 600 mg PO Q8H PRN #30 tablet PRN Reason: Pain Referrals: AWA MCCARTNEY MD [Primary Care Provider] - 3-5 Days Time of Disposition: 22:28
[2018-01-17] MEDS ORDERED: MORPHINE IV PRN (00:30)
[2018-01-17] MEDS ORDERED: TYLENOL PO PRN (02:50)
[2018-01-17] MEDS ORDERED: AMBIEN PO PRN (02:50)
[2018-01-17] MEDS ORDERED: SODIUM CHLORIDE FLUSH SYRINGE 10 ML IV PRN (02:50)
[2018-01-17] MEDS ORDERED: ZOFRAN IV PRN (02:50)
[2018-01-17] MEDS ORDERED: PERCOCET 5/325 PO PRN (02:50)
--- NOTE | 2018-01-17 02:54 | History and Physical Report ---
History of Present Illness Date of examination: 01/16/18 Date of admission: 01/16/18 22:51 Chief complaint: Chief complaint: Right foot pain History of present illness: [place]: 57-year-old -[place] male with history of EtOH dependence comes in for status post fall. Patient was found to have fracture of the right foot. During his stay in the emergency room patient became nervous and tremulous. 3 episodes of vomiting while in the emergency room.. Patient is alcohol dependent and drinks every day excessively. Patient wants help for alcohol dependence. Patient has a history of hypertension deep vein thrombosis pulmonary embolism and PTSD. No fever no chills no recent travel. Patient has not consumed any alcohol in the last 24 hours Past Medical History Previous Medical History?: Yes Hx Hypertension: Yes Hx Deep Vein Thrombosis: Yes Hx Pulmonary Embolism: Yes Hx Arthritis: Yes Hx Psychiatric Treatment: Yes (PTSD/ DEPRESSION) Additional medical history: Alcohol dependence. diverticulitis. fibromyalgia Surgical History Past Surgical History?: Yes Hx Cholecystectomy: Yes Additional Surgical History: gastric bypass surgery. 2011. 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 Social History Smoking Status: Never Smoker Substance Use Type: Alcohol, Prescribed Family history Htn - Medications Home Medications: Home Medications Medication Instructions Recorded Confirmed Last Taken Type Famotidine [Pepcid] 20 mg PO DAILY #5 tablet 10/10/15 06/17/17 1 Day Ago Rx ~06/16/17 Cholecalciferol Vit D3 [Vitamin D3] 1,000 unit PO QDAY #30 tablet 12/09/1606/17 1 Day Ago Rx ~06/16/17 Hydrochlorothiazide [HCTZ] 12.5 mg PO QDAY #30 capsule 12/09/16 06/17/17 1 Day Ago Rx ~06/16/17 Cyclobenzaprine [Flexeril] 10 mg PO BID PRN #10 tablet 01/16/18 Unknown Rx Ibuprofen [Motrin] 600 mg PO Q8H PRN #30 tablet 01/16/18 Unknown Rx Review of Systems ROS: Stated complaint: PAIN/RIGHT SIDE/FELL Other details as noted in HPI Constitutional: reports tremor denies: fever ENT: denies: throat or neck pain Respiratory: denies: cough, shortness of breath Cardiovascular: denies: chest pain Endocrine: denies unexplained weight loss or gain Gastrointestinal: reports abdominal pain, nausea Genitourinary: denies: dysuria Musculoskeletal: reports right lateral foot pain denies: leg swelling Skin: denies: rash Neurological: denies: headache Hematological/Lymphatic: denies: easy bleeding or easy bruising Psych: denies sadness or hopelessness Constitutional: denies: chills, fever Eyes: denies: eye pain, eye discharge, vision change ENT: denies: ear pain, throat pain Respiratory: denies: cough, shortness of breath, wheezing Cardiovascular: denies: chest pain, palpitations Endocrine: no symptoms reported Gastrointestinal: denies: abdominal pain, nausea, diarrhea Genitourinary: denies: urgency, dysuria Musculoskeletal: back pain, arthralgia. denies: joint swelling Skin: denies: rash, lesions Neurological: denies: headache, weakness, paresthesias Psychiatric: denies: anxiety, depression Hematological/Lymphatic: denies: easy bleeding, easy bruising Medications and Allergies Allergies Allergy/AdvReac Type Severity Reaction Status Date / Time Penicillins Allergy Swelling Verified 07/07/15 12:24 sildenafil citrate Allergy Swelling Verified 07/07/15 12:24 [From Viagra] simvastatin Allergy Swelling Verified 07/07/15 12:24 Home Medications Medication Instructions Recorded Confirmed Last Taken Type Famotidine [Pepcid] 20 mg PO DAILY #5 tablet 10/10/15 06/17/17 1 Day Ago Rx ~06/16/17 Cholecalciferol Vit D3 [Vitamin D3] 1,000 unit PO QDAY #30 tablet 12/09/1606/17 1 Day Ago Rx ~06/16/17 Hydrochlorothiazide [HCTZ] 12.5 mg PO QDAY #30 capsule 12/09/16 06/17/17 1 Day Ago Rx ~06/16/17 Cyclobenzaprine [Flexeril] 10 mg PO BID PRN #10 tablet 01/16/18 Unknown Rx Ibuprofen [Motrin] 600 mg PO Q8H PRN #30 tablet 01/16/18 Unknown Rx Active Meds: Active Medications Lorazepam (Ativan) 2 mg IV Q1HR PRN PRN Reason: CIWA-Ar 8-15 Last Admin: 01/16/18 22:42 Dose: 2 mg Lorazepam (Ativan) 4 mg IV Q1HR PRN PRN Reason: CIWA-Ar 16-25 Lorazepam (Ativan) 4 mg IV Q15MIN PRN PRN Reason: CIWA-Ar >25 Morphine Sulfate (Morphine) 2 mg IV Q4H PRN PRN Reason: Pain, Moderate (4-6) Last Admin: 01/17/18 00:55 Dose: 2 mg Exam - Constitutional Vitals: Temp Pulse Resp BP Pulse Ox 98.4 F 97 H 20 143/88 95 01/16/18 16:00 01/16/18 23:59 01/17/18 00:55 01/16/18 23:59 01/16/18 23:59 General appearance: Present: no acute distress, well-nourished - EENT Eyes: Present: PERRL ENT: hearing intact, clear oral mucosa - Neck Neck: Present: supple, normal ROM - Respiratory Respiratory effort: normal Respiratory: bilateral: CTA - Cardiovascular Heart rate: 78 Rhythm: regular Heart Sounds: Present: S1 & S2. Absent: rub, click - Extremities Extremities: pulses symmetrical, No edema Peripheral Pulses: within normal limits - Abdominal General gastrointestinal: Present: soft, non-tender, non-distended, normal bowel sounds Male genitourinary: Present: normal - Rectal Rectal Exam: deferred - Integumentary Integumentary: Present: clear, warm, dry - Musculoskeletal Musculoskeletal: gait normal, strength equal bilaterally - Psychiatric Psychiatric: appropriate mood/affect, intact judgment & insight - Neurologic Neurologic: CNII-XII intact, moves all extremities - Allied Health Allied health notes reviewed: nursing, case management Results - Labs CBC & Chem 7: 01/16/18 21:29 01/16/18 21:29 Labs: Laboratory Last Values WBC 9.6 K/mm3 (4.5-11.0) 01/16/18 21:29 RBC 4.72 M/mm3 (3.65-5.03) 01/16/18 21:29 Hgb 10.6 gm/dl (11.8-15.2) L 01/16/18 21:29 Hct 34.0 % (35.5-45.6) L 01/16/18 21:29 MCV 72 fl (84-94) L 01/16/18 21:29 MCH 22 pg (28-32) L 01/16/18 21:29 MCHC 31 % (32-34) L 01/16/18 21:29 RDW 21.7 % (13.2-15.2) H 01/16/18 21:29 Plt Count 297 K/mm3 (140-440) 01/16/18 21:29 Lymph % (Auto) 13.7 % (13.4-35.0) 01/16/18 21: [place] % (Auto) 9.4 % (0.0-7.3) H 01/16/18 21: Eos % (Auto) 0.4 % (0.0-4.3) 01/16/18 21: Baso % (Auto) 1.1 % (0.0-1.8) 01/16/18 21: Lymph # 1.3 K/mm3 (1.2-5.4) 01/16/18: [place] # 0.9 K/mm3 (0.0-0.8) H 01/16/18 21: Eos # 0.0 K/mm3 (0.0-0.4) 01/16/18: Baso # 0.1 K/mm3 (0.0-0.1) 01/16/18 21: Seg Neutrophils % 75.4 % (40.0-70.0) H 01/16/18 21: Seg Neutrophils # 7.2 K/mm3 (1.8-7.7) 01/16/18 21: Sodium 139 mmol/L (137-145) 01/16/18 21: Potassium 4.2 mmol/L (3.6-5.0) 01/16/18 21: Chloride 95.5 mmol/L (98-107) L 01/16/18 21: Carbon Dioxide 26 mmol/L (22-30) 01/16/18 21:29 Anion Gap 22 mmol/L 01/16/18 21:29 BUN 8 mg/dL (9-20) L 01/16/18 21:29 Creatinine 0.7 mg/dL (0.8-1.5) L 01/16/18 21: Estimated GFR > 60 ml/min 01/16/18 21:29 BUN/Creatinine Ratio 11 % 01/16/18: Glucose 107 mg/dL (75-100) H 01/16/18 21:29 Calcium 8.6 mg/dL (8.4-10.2) 01/16/18 21:29 Phosphorus 3.30 mg/dL (2.5-4.5) 01/16/18 21:29 Magnesium 2.00 mg/dL (1.7-2.3) 01/16/18 21:29 Total Bilirubin 0.50 mg/dL (0.1-1.2) 01/16/18 21:29 Direct Bilirubin < 0.2 mg/dL (0-0.2) 01/16/18 21:29 Indirect Bilirubin 0.3 mg/dL 01/16/18 21:29 AST 28 units/L (5-40) 01/16/18 21:29 ALT 10 units/L (7-56) 01/16/18 21:29 Alkaline Phosphatase 97 units/L (35-129) 01/16/18 21:29 Ammonia 43.0 umol/L (25-60) 01/16/18 21:29 Total Protein 7.9 g/dL (6.3-8.2) 01/16/18 21:29 Albumin 4.2 g/dL (3.9-5) 01/16/18 21:29 Albumin/Globulin Ratio 1.1 % 01/16/18 21:29 Amylase 162 units/L (27-131) H 01/16/18 21:29 Lipase 150 units/L (13-60) H 01/16/18 21:29 Plasma/Serum Alcohol 0.02 % (0-0.07) 01/16/18 21:29 - Imaging and Cardiology Imaging and Cardiology: Right foot x-ray: First metatarsal right foot with impacted fracture Assessment and Plan Advance Directives: Yes ( full code. ) VTE prophylaxis?: Chemical Plan of care discussed with patient/family: Yes - Patient Problems (1) Fracture of 5th metatarsal Current Visit: Yes Status: Acute Qualifiers: Encounter type: initial encounter Fracture type: closed Fracture alignment: nondisplaced Laterality: right Qualified Code(s): S92.354A - Nondisplaced fracture of fifth metatarsal bone, right foot, initial encounter for closed fracture Plan to address problem: Right foot splinted Orthopedics CONSULT REQUESTED (2) EtOH dependence Current Visit: Yes Status: Chronic Qualifiers: Substance use status: in withdrawal Plan to address problem: Patient initiated on CIWA protocol Mental health consult requested (3) Hypertension Current Visit: Yes Status: Chronic Qualifiers: Hypertension type: essential hypertension Qualified Code(s): I10 - Essential (primary) hypertension Plan to address problem: Continue hydrochlorothiazide (4) Gastritis Current Visit: Yes Status: Acute Qualifiers: Gastritis type: alcoholic Plan to address problem: Secondary to alcohol Patient initiated on IV Protonix and Zofran (5) Anemia Current Visit: Yes Status: Chronic Qualifiers: Anemia type: unspecified type Qualified Code(s): D64.9 - Anemia, unspecified Plan to address problem: Probably nutritional secondary to his dependence on alcohol Iron levels folic acid and B12 were ordered MCV low (6) Pancreatitis Current Visit: Yes Status: Acute Qualifiers: Chronicity: acute Pancreatitis type: unspecified pancreatitis type Acute pancreatitis complication: unspecified Qualified Code(s): K85.90 - Acute pancreatitis without necrosis or infection, unspecified Plan to address problem: Amylase and lipase mildly elevated We will recheck the amylase and lipase Clear liquids in the meantime (7) DVT prophylaxis Current Visit: Yes Status: Acute Plan to address problem: Lovenox initiated GI prophylaxis patient on Protonix
[2018-01-17] MEDS: NACL 0.9% 1000 ML 1,000 ML IV SCH ×2 (04:24→19:30)
[2018-01-17] MEDS: PROTONIX IV SCH ×3 (04:25→22:16)
[2018-01-17 05:13] LABS: Amphetamine Screen,Urine PRESUMPTIVE NEGATIVE; Benzodiazepines Screen,Urine PRESUMPTIVE NEGATIVE; Cannabinoid Screen,Urine PRESUMPTIVE NEGATIVE; Cocaine Screen,Urine PRESUMPTIVE NEGATIVE; Methadone Screen,Urine PRESUMPTIVE NEGATIVE
[2018-01-17 05:20] LABS: Bilirubin,Urine NEG (Negative); Blood,Urine NEG (Negative); Color,Urine Yellow (Yellow); Mucus,Urine FEW /HPF; Protein,Urine <15 mg/dL mg/dL (Negative); Urobilinogen,Urine < 2.0 mg/dL (<2.0)
[2018-01-17 05:25] LABS: Opiate Screen,Urine PRESUMPTIVE POSITIVE
[2018-01-17 07:17] LABS: Basophils # (Auto) 0.1 K/mm3 (0.0-0.1); Basophils % (Auto) 1.9 % (0.0-1.8); Eosinophils # (Auto) 0.2 K/mm3 (0.0-0.4); Eosinophils % (Auto) 2.4 % (0.0-4.3); Hematocrit 30.2 % (35.5-45.6); Hemoglobin 9.4 gm/dl (11.8-15.2); Lymphocytes # (Auto) 1.6 K/mm3 (1.2-5.4); Lymphocytes % (Auto) 22.8 % (13.4-35.0); Mean Corpuscular HGB Conc 31 % (32-34); Mean Corpuscular Volume 72 fl (84-94); Monocytes # (Auto) 0.9 K/mm3 (0.0-0.8); Monocytes % (Auto) 12.6 % (0.0-7.3); Platelet Count 191 K/mm3 (140-440); Red Blood Count 4.21 M/mm3 (3.65-5.03)
[2018-01-17 07:20] LABS: Mean Corpuscular Hemoglobin 22 pg (28-32); Red Cell Distribution Width 21.1 % (13.2-15.2)
[2018-01-17 07:40] LABS: Alanine Aminotransferase 7 units/L (7-56); Albumin 3.5 g/dL (3.9-5); BUN/Creatinine Ratio 13; Blood Urea Nitrogen 8 mg/dL (9-20); Hemolysis Index 0
[2018-01-17 07:43] LABS: Albumin 3.5 g/dL (3.9-5); Bilirubin,Direct 0.2 mg/dL (0-0.2)
[2018-01-17 07:44] LABS: % Iron Saturation 13.92 %
[2018-01-17] MEDS: HCTZ PO SCH (09:45)
[2018-01-17] MEDS: VITAMIN D3 PO SCH (09:45)
[2018-01-17] MEDS: SODIUM CHLORIDE FLUSH SYRINGE 10 ML IV SCH ×2 (09:46→22:16)
[2018-01-17] MEDS ORDERED: PEPCID IV SCH (10:00)
[2018-01-17] MEDS ORDERED: NORCO 10/325 PO PRN (10:31)
[2018-01-17] MEDS: NORCO 10/325 PO PRN ×2 (12:07→22:15)
[2018-01-17] MEDS: PRADAXA PO SCH ×2 (13:28→22:15)
[2018-01-17] MEDS: PEPCID PO SCH (13:55)
--- NOTE | 2018-01-17 16:08 | Progress Note ---
Assessment and Plan Assessment and plan: 57-year-old -[place] male with history of EtOH dependence comes in for status post fall. Patient was found to have fracture of the right foot. During his stay in the emergency room patient became nervous and tremulous. 3 episodes of vomiting while in the emergency room.. Patient is alcohol dependent and drinks every day excessively. Patient wants help for alcohol dependence. Patient has a history of hypertension deep vein thrombosis pulmonary embolism and PTSD. No fever no chills no recent travel. Patient has not consumed any alcohol in the last 24 hours (1) Fracture of 5th metatarsal Current Visit: Yes Status: Acute Qualifiers: Encounter type: initial encounter Fracture type: closed Fracture alignment: nondisplaced Laterality: right Qualified Code(s): S92.354A - Nondisplaced fracture of fifth metatarsal bone, right foot, initial encounter for closed fracture Plan to address problem: Right foot splinted Orthopedics CONSULT REQUESTED (2) EtOH dependence Current Visit: Yes Status: Chronic Qualifiers: Substance use status: in withdrawal Plan to address problem: Patient initiated on CIWA protocol Mental health consult requested (3) Hypertension Current Visit: Yes Status: Chronic Qualifiers: Hypertension type: essential hypertension Qualified Code(s): I10 - Essential (primary) hypertension Plan to address problem: Continue hydrochlorothiazide (4) Gastritis Current Visit: Yes Status: Acute Qualifiers: Gastritis type: alcoholic Plan to address problem: Secondary to alcohol Patient initiated on IV Protonix and Zofran (5) Anemia Current Visit: Yes Status: Chronic Qualifiers: Anemia type: unspecified type Qualified Code(s): D64.9 - Anemia, unspecified Plan to address problem: Probably nutritional secondary to his dependence on alcohol Iron levels folic acid and B12 were ordered MCV low Restart Pradax and Norvasc (6) Pancreatitis Current Visit: Yes Status: Acute Qualifiers: Chronicity: acute Pancreatitis type: unspecified pancreatitis type Acute pancreatitis complication: unspecified Qualified Code(s): K85.90 - Acute pancreatitis without necrosis or infection, unspecified Plan to address problem: Amylase and lipase mildly elevated- now improved. (7) DVT prophylaxis Current Visit: Yes Status: Acute Plan to address problem: Lovenox initiated GI prophylaxis patient on Protonix History Interval history: Patient seen and examined, still with some pain at the joints, knee and foot. Dizzine this still persist with ambulation at this time. Hospitalist Physical - Constitutional Vitals: Temp Pulse Resp BP Pulse Ox 98.9 F 81 20 132/75 97 01/17/18 08:11 01/17/18 08:11 01/17/18 08:11 01/17/18 08:11 01/17/18 08:11 General appearance: Present: no acute distress, well-nourished Results - Labs CBC & Chem 7: 01/17/18 06:21 01/17/18 06:21 Labs: Laboratory Last Values WBC 7.2 K/mm3 (4.5-11.0) 01/17/18 06:21 RBC 4.21 M/mm3 (3.65-5.03) 01/17/18 06:21 Hgb 9.4 gm/dl (11.8-15.2) L 01/17/18 06:21 Hct 30.2 % (35.5-45.6) L 01/17/18 06:21 MCV 72 fl (84-94) L 01/17/18 06:21 MCH 22 pg (28-32) L 01/17/18 06:21 MCHC 31 % (32-34) L 01/17/18 06:21 RDW 21.1 % (13.2-15.2) H 01/17/18 06:21 Plt Count 191 K/mm3 (140-440) 01/17/18 06:21 Lymph % (Auto) 22.8 % (13.4-35.0) 01/17/18 06:21 [place] % (Auto) 12.6 % (0.0-7.3) H 01/17/18 06:21 Eos % (Auto) 2.4 % (0.0-4.3) 01/17/18 06:21 Baso % (Auto) 1.9 % (0.0-1.8) H 01/17/18 06:21 Lymph # 1.6 K/mm3 (1.2-5.4) 01/17/18 06:21 [place] # 0.9 K/mm3 (0.0-0.8) H 01/17/18 06:21 Eos # 0.2 K/mm3 (0.0-0.4) 01/17/18 06:21 Baso # 0.1 K/mm3 (0.0-0.1) 01/17/18 06:21 Seg Neutrophils % 60.3 % (40.0-70.0) 01/17/18 06:21 Seg Neutrophils # 4.3 K/mm3 (1.8-7.7) 01/17/18 06:21 Sodium 141 mmol/L (137-145) 01/17/18 06:21 Potassium 3.6 mmol/L (3.6-5.0) 01/17/18 06:21 Chloride 100.7 mmol/L (98-107) 01/17/18 06:21 Carbon Dioxide 32 mmol/L (22-30) H 01/17/18 06:21 Anion Gap 12 mmol/L 01/17/18 06:21 BUN 8 mg/dL (9-20) L 01/17/18 06:21 Creatinine 0.6 mg/dL (0.8-1.5) L 01/17/18 06:21 Estimated GFR > 60 ml/min 01/17/18 06:21 BUN/Creatinine Ratio 13 % 01/17/18 06:21 Glucose 82 mg/dL (75-100) 01/17/18 06:21 Hemoglobin A1c 5.1 % (4-6) 01/17/18 06:21 Calcium 8.0 mg/dL (8.4-10.2) L 01/17/18 06:21 Phosphorus 3.30 mg/dL (2.5-4.5) 01/16/18 21:29 Magnesium 2.00 mg/dL (1.7-2.3) 01/16/18 21:29 Iron 54 ug/dL (49-181) 01/17/18 06:21 TIBC 388 mcg/dL (250-450) 01/17/18 06:21 % Saturation 13.92 % 01/17/18 06:21 Transferrin 343 mg/dl (180-329) H 01/17/18 06:21 Total Bilirubin 0.70 mg/dL (0.1-1.2) 01/17/18 06:21 Direct Bilirubin 0.2 mg/dL (0-0.2) 01/17/18 06:21 Indirect Bilirubin 0.5 mg/dL 01/17/18 06:21 AST 20 units/L (5-40) 01/17/18 06:21 ALT 7 units/L (7-56) 01/17/18 06:21 Alkaline Phosphatase 85 units/L (35-129) 01/17/18 06:21 Ammonia 39.0 umol/L (25-60) 01/17/18 06:21 Total Protein 6.4 g/dL (6.3-8.2) 01/17/18 06:21 Albumin 3.5 g/dL (3.9-5) L 01/17/18 06:21 Albumin/Globulin Ratio 1.2 % 01/17/18 06:21 Amylase 162 units/L (27-131) H 01/16/18 21:29 Lipase 34 units/L (13-60) 01/17/18 06:21 Vitamin B12 233.3 pg/mL (211-911) 01/17/18 06:21 Urine Color Yellow (Yellow) 01/16/18 Unknown Urine Turbidity Clear (Clear) 01/16/18 Unknown Urine pH 7.0 (5.0-7.0) 01/16/18 Unknown Ur Specific [place] 1.011 (1.003-1.030) 01/16/18 Unknown Urine Protein <15 mg/dl mg/dL (Negative) 01/16/18 Unknown Urine Glucose (UA) Neg mg/dL (Negative) 01/16/18 Unknown Urine Ketones Neg mg/dL (Negative) 01/16/18 Unknown Urine Blood Neg (Negative) 01/16/18 Unknown Urine Nitrite Neg (Negative) 01/16/18 Unknown Urine Bilirubin Neg (Negative) 01/16/18 Unknown Urine Urobilinogen < 2.0 mg/dL (<2.0) 01/16/18 Unknown Ur Leukocyte Esterase Neg (Negative) 01/16/18 Unknown Urine WBC (Auto) 2.0 /HPF (0.0-6.0) 01/16/18 Unknown Urine RBC (Auto) 2.0 /HPF (0.0-6.0) 01/16/18 Unknown Urine Mucus Few /HPF 01/16/18 Unknown Urine Opiates Screen Presumptive positive 01/16/18 Unknown Urine Methadone Screen Presumptive negative 01/16/18 Unknown Ur Barbiturates Screen Presumptive negative 01/16/18 Unknown Ur Phencyclidine Scrn Presumptive negative 01/16/18 Unknown Ur Amphetamines Screen Presumptive negative 01/16/18 Unknown U Benzodiazepines Scrn Presumptive negative 01/16/18 Unknown Urine Cocaine Screen Presumptive negative 01/16/18 Unknown U Marijuana (THC) Screen Presumptive negative 01/16/18 Unknown Drugs of Abuse Note Disclamer 01/16/18 Unknown Plasma/Serum Alcohol 0.02 % (0-0.07) 01/16/18 21:29
[2018-01-18 07:02] LABS: Basophils # (Auto) 0.1 K/mm3 (0.0-0.1); Basophils % (Auto) 1.4 % (0.0-1.8); Eosinophils # (Auto) 0.7 K/mm3 (0.0-0.4); Eosinophils % (Auto) 10.4 % (0.0-4.3); Hematocrit 31.8 % (35.5-45.6); Hemoglobin 10.1 gm/dl (11.8-15.2); Lymphocytes # (Auto) 1.5 K/mm3 (1.2-5.4); Lymphocytes % (Auto) 21.7 % (13.4-35.0); Mean Corpuscular HGB Conc 32 % (32-34); Mean Corpuscular Volume 72 fl (84-94); Monocytes # (Auto) 0.7 K/mm3 (0.0-0.8); Monocytes % (Auto) 10.9 % (0.0-7.3); Red Blood Count 4.43 M/mm3 (3.65-5.03)
[2018-01-18 07:06] LABS: INR 1.03 (0.87-1.13)
[2018-01-18 07:07] LABS: Mean Corpuscular Hemoglobin 23 pg (28-32); Platelet Count 152 K/mm3 (140-440); Red Cell Distribution Width 20.9 % (13.2-15.2)
[2018-01-18 07:18] LABS: Alanine Aminotransferase 8 units/L (7-56); Albumin 3.7 g/dL (3.9-5); BUN/Creatinine Ratio 7; Blood Urea Nitrogen 5 mg/dL (9-20); Calcium 8.4 mg/dL (8.4-10.2); Hemolysis Index 5
[2018-01-18 07:22] LABS: Bilirubin,Urine NEG (Negative); Blood,Urine MOD (Negative); Color,Urine Yellow (Yellow); Protein,Urine <15 mg/dL mg/dL (Negative); Urobilinogen,Urine < 2.0 mg/dL (<2.0)
[2018-01-18] MEDS: NACL 0.9% 1000 ML 1,000 ML IV SCH (07:53)
--- NOTE | 2018-01-18 09:16 | Discharge Summary ---
Providers - Providers Date of Admission: 01/16/18 22:51 Attending physician: GINO DE LA CRUZ MD 01/17/18 10:31 Physical Therapy Evaluation and Treat [CONS] Routine Comment: Reason For Exam: attaxic gait 01/17/18 12:55 Consult to Physician [CONS] Routine Comment: Consulting Provider: WILLIAM SWEET Physician Instructions: Reason For Exam: metatarsal fracture Primary care physician: AWA MCCARTNEY Hospitalization Reason for admission: FALL Condition: Fair Hospital course: 57-year-old -[place]ian male with history of EtOH dependence comes in for status post fall. Patient was found to have fracture of the right foot. During his stay in the emergency room patient became nervous and tremulous. 3 episodes of vomiting while in the emergency room.. Patient is alcohol dependent and drinks every day excessively. Patient wants help for alcohol dependence. Patient has a history of hypertension deep vein thrombosis pulmonary embolism and PTSD. No fever no chills no recent travel. Patient has not consumed any alcohol in the last 24 hours. . Patient was noted to have a 15 metatarsal nondisplaced fracture splint has been placed. Counseling was provided to the patient alcohol use. The patient's anemia has remained stable. We did have extensive discussion with the patient about mildly elevated lipase and amylase which is likely secondary to alcohol use he verbalized understanding. He'll be discharged on crutches he is to follow with orthopedic surgeon outpatient physical therapy. He did have hematuria which patient reports that since he arrived back C he has been using Goody powder and ibuprofen I did advise against this. Ultrasound of the renal function was done (1) Fracture of 5th metatarsal (2) EtOH dependence (3) Hypertension (4) Gastritis (5) Anemia (6) Pancreatitis (7) Hematuria Disposition: [id number] HOME UNDER HOME [facility] Time spent for discharge: 35 mins Core Measure Documentation - Palliative Care Palliative Care/ Comfort Measures: Not Applicable - Core Measures Any of the following diagnoses?: none - VTE Discharge Requirements Deep Vein Thrombosis/Pulmonary Embolism Present on Admission: No Exam - Physical Exam Narrative exam: VITAL SIGNS: Reviewed. GENERAL: The patient appeared well nourished and normally developed. Vital signs as documented. HEAD: No signs of head trauma. EYES: Pupils are equal. Extraocular motions intact. EARS: Hearing grossly intact. MOUTH: Oropharynx is normal. NECK: No adenopathy, no JVD. CHEST: Chest with clear breath sounds bilaterally. No wheezes, rales, or rhonchi. CARDIAC: Regular rate and rhythm. S1 and S2, without murmurs, gallops, or rubs. VASCULAR: No Edema. Peripheral pulses normal and equal in all extremities. ABDOMEN: Soft, without detectable tenderness. No sign of distention. No rebound or guarding, and no masses palpated. Bowel Sounds normal. MUSCULOSKELETAL: Left lower extremity brace. Good range of motion of all major joints. Extremities without clubbing, cyanosis or edema. NEUROLOGIC EXAM: Alert and oriented x 3. No focal sensory or strength deficits. Speech normal. Follows commands. PSYCHIATRIC: Mood normal. SKIN: No rash or lesions. - Constitutional Vitals: Temp Pulse Resp BP Pulse Ox 98.4 F 79 18 139/92 96 01/17/18 19:23 01/17/18 19:23 01/17/18 23:15 01/17/18 19:23 01/17/18 19:23 Plan Activity: advance as tolerated, fall precautions Diet: low fat Special Instructions: physical therapy Durable Medical Equipment Needed Upon Discharge: Crutches Follow up with: AWA MCCARTNEY MD [Primary Care Provider] - 3-5 Days WILLIAM SWEET MD [Staff Physician] - 7 Days Prescriptions: Cyclobenzaprine [Flexeril] 10 mg PO BID PRN #10 tablet PRN Reason: Muscle Spasm
[2018-01-18] MEDS: HCTZ PO SCH (09:56)
[2018-01-18] MEDS: PRADAXA PO SCH (09:56)
[2018-01-18] MEDS: PEPCID PO SCH (09:56)
[2018-01-18] MEDS: VITAMIN D3 PO SCH (09:57)
[2018-01-18] MEDS: SODIUM CHLORIDE FLUSH SYRINGE 10 ML IV SCH (09:57)
[2018-01-18] MEDS: PROTONIX IV SCH (09:57)
[2018-01-18] MEDS ORDERED: NORVASC PO SCH (10:00)
--- NOTE | 2018-01-18 11:29 | Ultrasound Report ---
ULTRASOUND RENAL INDICATION: Blood in urine. COMPARISON: None similar. FINDINGS: Renal sonography demonstrates normal/top normal renal cortical echogenicity. Grossly preserved contours. No hydronephrosis. Possibly echogenic/fatty imaged liver. Right kidney measures 10 x 5.2 x 5.6 cm with cortical thickness of 1.3 cm. Left kidney estimated at 11.5 x 5.4 x 6.3 cm with cortical thickness of 1.9 cm. Urinary bladder suboptimally distended and assessed, though grossly unremarkable, in so far seen. CONCLUSION: No acute renal sonographic abnormality with few other findings, as described. Thank you for the opportunity to participate in this patient's care.
[2018-01-18 12:37] VITALS: BP 141/84
== END 2018-01-18 13:47 | disposition home health service (06) | DRG 896 ==
LOC: ED 14:35 → 3A 22:51
PROVIDERS: ADMIT Internal Medicine; ATTEND Internal Medicine
PROC: 2W3UX1Z Immobilization of Right Toe using Splint (ICD-10-PCS; principal; 2018-01-16)
DX: F10.239 Alcohol dependence with withdrawal, unspecified (principal); K85.90 Acute pancreatitis without necrosis or infection, unspecified; S92.354A Nondisplaced fracture of fifth metatarsal bone, right foot, initial encounter for closed fracture; D64.9 Anemia, unspecified; Z86.718 Personal history of other venous thrombosis and embolism; Z86.711 Personal history of pulmonary embolism; F43.10 Post-traumatic stress disorder, unspecified; M19.90 Unspecified osteoarthritis, unspecified site; Z88.0 Allergy status to penicillin; Z88.8 Allergy status to other drugs, medicaments and biological substances; M79.7 Fibromyalgia; Z90.49 Acquired absence of other specified parts of digestive tract; Z98.84 Bariatric surgery status; F32.9 Major depressive disorder, single episode, unspecified; S39.012A Strain of muscle, fascia and tendon of lower back, initial encounter; W18.39XA Other fall on same level, initial encounter; Y93.89 Activity, other specified; Y92.099 Unspecified place in other non-institutional residence as the place of occurrence of the external cause; E86.0 Dehydration; K29.70 Gastritis, unspecified, without bleeding; K29.20 Alcoholic gastritis without bleeding
CPT/HCPCS: 36415; 72100; 76770; 80048; 80053; 80074; 80307; 80320; 81001; 82140; 82150; 82607; 82747; 83036; 83550; 83690; 83735; 84100; 85025; 85610; 93005; 93010; 93970; C9113; G0480; J2060; J2270; J2405; J3411; J7030

== ENCOUNTER 2021-05-31 15:05 | Emergency (ER) | payer MEDICARE ==
[2021-05-31] MEDS ORDERED: chlordiazePOXIDE 25 MG CAP PO PRN ×2 (16:44)
[2021-05-31] MEDS ORDERED: LORazepam 2 MG/ML VIAL IV PRN ×3 (16:44)
--- NOTE | 2021-05-31 16:47 | Emergency Department Report ---
ED General Adult HPI - General Chief complaint: Alcohol Stated complaint: DETOX Time Seen by Provider: 05/31/21 16:25 Source: patient Mode of arrival: Ambulatory Limitations: No Limitations - History of Present Illness Initial comments: Patient presents to the emergency department with a chief complaint of alcohol intoxication. Patient states that he has been drinking heavily for the last 3 days secondary to depression and his past history of PTSD. He denies homicidal suicidal ideations but the patient is obviously intoxicated on initial examinati on. Patient denies chest pain, shortness breath, or headache. Patient replaced on the 2012 mm head evaluation will be done. -: days(s) (3) Severity scale (0 -10): 0 Consistency: constant Improves with: none Worsens with: none Associated Symptoms: denies other symptoms Treatments Prior to Arrival: none - Related Data Home Medications Medication Instructions Recorded Confirmed Last Taken Dabigatran [Pradaxa] 150 mg PO BID 01/17/18 01/17/18 01/13/18 HYDROcodone/ACETAMINOPHEN 1 each PO Q8H PRN 01/17/18 01/17/18 01/15/18 [Hydrocodone-Acetamin 10-325 mg] amLODIPine 5 mg PO DAILY 01/17/18 01/17/18 Unknown Previous Rx's Medication Instructions Recorded Last Taken Type Famotidine [Pepcid] 20 mg PO DAILY #5 tablet 10/10/15 1 Day Ago Rx ~06/16/17 Cholecalciferol Vit D3 [Vitamin D3 1,000 unit PO QDAY #30 tablet 12/09/16 1 Day Ago Rx 1,000 UNIT TAB] ~06/16/17 hydroCHLOROthiazide [HCTZ] 12.5 mg PO QDAY #30 capsule 12/09/16 1 Day Ago Rx ~06/16/17 Cyclobenzaprine [Flexeril] 10 mg PO BID PRN #10 tablet 01/16/18 Unknown Rx Allergies Allergy/AdvReac Type Severity Reaction Status Date / Time Penicillins Allergy Swelling Verified 05/31/21 15:09 sildenafil citrate Allergy Swelling Verified 05/31/21 15:09 [From Viagra] simvastatin Allergy Swelling Verified 05/31/21 15:09 ED Review of Systems ROS: Stated complaint: DETOX Other details as noted in HPI Comment: All other systems reviewed and negative Constitutional: denies: chills, fever Eyes: denies: eye pain, eye discharge, vision change ENT: denies: ear pain, throat pain Respiratory: denies: cough, shortness of breath, wheezing Cardiovascular: denies: chest pain, palpitations Endocrine: no symptoms reported Gastrointestinal: denies: abdominal pain, nausea, diarrhea Genitourinary: denies: urgency, dysuria Musculoskeletal: denies: back pain, joint swelling, arthralgia Skin: denies: rash, lesions Neurological: denies: headache, weakness, paresthesias Psychiatric: depression. denies: anxiety Hematological/Lymphatic: denies: easy bleeding, easy bruising ED Past Medical Hx - Past Medical History Hx Hypertension: Yes Hx Congestive Heart Failure: No Hx Diabetes: No Hx Deep Vein Thrombosis: Yes Hx Pulmonary Embolism: Yes Hx Arthritis: Yes Hx Psychiatric Treatment: Yes (PTSD/ DEPRESSION) Hx Asthma: No Hx COPD: No Additional medical history: Alcohol dependence. diverticulitis. fibromyalgia - Surgical History Hx Cholecystectomy: Yes Additional Surgical History: gastric bypass surgery. 2011. 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 - Social History Smoking Status: Never Smoker - Medications Home Medications: Home Medications Medication Instructions Recorded Confirmed Last Taken Type Famotidine [Pepcid] 20 mg PO DAILY #5 tablet 10/10/15 01/17/18 1 Day Ago Rx ~06/16/17 Cholecalciferol Vit D3 [Vitamin D3 1,000 unit PO QDAY #30 tablet 12/09/16 01/17/18 1 Day Ago Rx 1,000 UNIT TAB] ~06/16/17 hydroCHLOROthiazide [HCTZ] 12.5 mg PO QDAY #30 capsule 12/09/16 01/17/18 1 Day Ago Rx ~06/16/17 Cyclobenzaprine [Flexeril] 10 mg PO BID PRN #10 tablet 01/16/18 Unknown Rx Dabigatran [Pradaxa] 150 mg PO BID 01/17/18 01/17/18 01/13/18 History HYDROcodone/ACETAMINOPHEN 1 each PO Q8H PRN 01/17/18 01/17/18 01/15/18 History [Hydrocodone-Acetamin 10-325 mg] amLODIPine 5 mg PO DAILY 01/17/18 01/17/18 Unknown History ED Physical Exam - General Limitations: No Limitations General appearance: alert, in no apparent distress, appears intoxicated - Head Head exam: Present: atraumatic, normocephalic - Eye Eye exam: Present: normal appearance, PERRL, EOMI - ENT ENT exam: Present: mucous membranes moist - Neck Neck exam: Present: normal inspection - Respiratory Respiratory exam: Present: normal lung sounds bilaterally. Absent: respiratory distress - Cardiovascular Cardiovascular Exam: Present: normal rhythm, tachycardia. Absent: systolic murmur, diastolic murmur, rubs, gallop - GI/Abdominal GI/Abdominal exam: Present: soft, normal bowel sounds - Rectal Rectal exam: Present: deferred - Extremities Exam Extremities exam: Present: normal inspection - Back Exam Back exam: Present: normal inspection - Neurological Exam Neurological exam: Present: alert, oriented X3 - Psychiatric Psychiatric exam: Present: normal affect, normal mood - Skin Skin exam: Present: warm, dry, intact, normal color. Absent: rash ED Course Vital Signs 05/31/21 05/31/21 05/31/21 15:09 17:06 17:21 Temperature 97.2 F L 98.3 F Pulse Rate 93 H 96 H Respiratory 22 18 Rate Blood Pressure Blood Pressure 150/93 154/97 [Left] O2 Sat by Pulse 97 98 95 Oximetry 05/31/21 05/31/21 05/31/21 17:32 17:45 18:01 Temperature Pulse Rate 93 H 89 Respiratory 16 15 14 Rate Blood Pressure 148/90 157/98 Blood Pressure [Left] O2 Sat by Pulse 97 96 Oximetry 05/31/21 05/31/21 05/31/21 18:15 18:35 18:45 Temperature Pulse Rate 92 H 89 Respiratory 24 17 Rate Blood Pressure 157/98 151/88 151/88 Blood Pressure [Left] O2 Sat by Pulse 97 94 96 Oximetry 05/31/21 05/31/21 05/31/21 19:01 19:15 19:31 Temperature Pulse Rate 86 87 92 H Respiratory 16 15 17 Rate Blood Pressure 151/88 151/88 146/86 Blood Pressure [Left] O2 Sat by Pulse 94 94 93 Oximetry 05/31/21 05/31/21 05/31/21 19:33 19:45 20:01 Temperature Pulse Rate 89 86 74 Respiratory 15 16 13 Rate Blood Pressure 146/86 146/86 146/86 Blood Pressure [Left] O2 Sat by Pulse 95 92 95 Oximetry 05/31/21 05/31/21 05/31/21 20:15 20:31 20:45 Temperature Pulse Rate 82 81 95 H Respiratory 15 15 14 Rate Blood Pressure 146/86 147/80 147/80 Blood Pressure [Left] O2 Sat by Pulse 91 96 98 Oximetry 05/31/21 05/31/21 05/31/21 21:01 21:15 21:30 Temperature Pulse Rate 95 H 102 H 103 H Respiratory 19 19 14 Rate Blood Pressure 168/116 168/116 168/116 Blood Pressure [Left] O2 Sat by Pulse 96 93 96 Oximetry 05/31/21 05/31/21 05/31/21 21:45 22:01 22:15 Temperature Pulse Rate 105 H 96 H 92 H Respiratory 22 18 18 Rate Blood Pressure 168/116 174/114 174/114 Blood Pressure [Left] O2 Sat by Pulse 97 97 94 Oximetry 05/31/21 05/31/21 05/31/21 22:31 22:45 23:01 Temperature Pulse Rate 100 H 91 H 86 Respiratory 17 13 16 Rate Blood Pressure 138/82 138/82 138/79 Blood Pressure [Left] O2 Sat by Pulse 91 94 97 Oximetry 05/31/21 05/31/21 05/31/21 23:15 23:31 23:46 Temperature Pulse Rate 88 92 H 91 H Respiratory 15 15 18 Rate Blood Pressure 138/79 152/94 152/94 Blood Pressure [Left] O2 Sat by Pulse 96 92 98 Oximetry 06/01/21 06/01/21 06/01/21 00:01 00:15 00:31 Temperature Pulse Rate 93 H 90 86 Respiratory 15 17 14 Rate Blood Pressure 152/94 152/94 148/103 Blood Pressure [Left] O2 Sat by Pulse 97 97 93 Oximetry 06/01/21 00:45 Temperature Pulse Rate 93 H Respiratory 18 Rate Blood Pressure 152/94 Blood Pressure [Left] O2 Sat by Pulse 96 Oximetry ED Medical Decision Making - Lab Data Result diagrams: 05/31/21 16:51 05/31/21 16:51 Lab Results 05/31/21 05/31/21 05/31/21 Range/Units 16:51 16:51 16:51 WBC 5.2 (4.5-11.0) K/mm3 RBC 4.63 (3.65-5.03) M/mm3 Hgb 9.9 L (11.8-15.2) gm/dl Hct 31.8 L (35.5-45.6) % MCV 69 L (84-94) fl MCH 22 L (28-32) pg MCHC 31 L (32-34) % RDW 22.9 H (13.2-15.2) % Plt Count 247 (140-440) K/mm3 Lymph % (Auto) 34.9 (13.4-35.0) % [place] % (Auto) 8.5 H (0.0-7.3) % Eos % (Auto) 2.1 (0.0-4.3) % Baso % (Auto) 1.7 (0.0-1.8) % Lymph # (Auto) 1.8 (1.2-5.4) K/mm3 [place] # (Auto) 0.4 (0.0-0.8) K/mm3 Eos # (Auto) 0.1 (0.0-0.4) K/mm3 Baso # (Auto) 0.1 (0.0-0.1) K/mm3 Seg Neutrophils % 52.8 (40.0-70.0) % Seg Neutrophils # 2.8 (1.8-7.7) K/mm3 PT 14.2 (12.2-14.9) Sec. INR 0.99 (0.87-1.13) APTT 34.7 (24.2-36.6) Sec. Sodium 140 (137-145) mmol/L Potassium 3.7 (3.6-5.0) mmol/L Chloride 98.1 (98-107) mmol/L Carbon Dioxide 24 (22-30) mmol/L Anion Gap 22 mmol/L BUN 3 L (9-20) mg/dL Creatinine 0.8 (0.8-1.3) mg/dL Estimated GFR > 60 ml/min BUN/Creatinine Ratio 4 % Glucose 96 (75-100) mg/dL Calcium 8.2 L (8.4-10.2) mg/dL Magnesium 2.30 (1.7-2.3) mg/dL Total Bilirubin 0.70 (0.1-1.2) mg/dL AST 180 H (5-40) units/L ALT 56 (7-56) units/L Alkaline Phosphatase 103 (35-129) units/L Total Protein 9.0 H (6.3-8.2) g/dL Albumin 4.3 (3.9-5) g/dL Albumin/Globulin Ratio 0.9 % Lipase 51 (13-60) units/L Urine Color (Yellow) Urine Turbidity (Clear) Urine pH (5.0-7.0) Ur Specific [place] (1.003-1.030) Urine Protein (Negative) mg/dL Urine Glucose (UA) (Negative) mg/dL Urine Ketones (Negative) mg/dL Urine Blood (Negative) Urine Nitrite (Negative) Urine Bilirubin (Negative) Urine Urobilinogen (<2.0) mg/dL Ur Leukocyte Esterase (Negative) Urine WBC (Auto) (0.0-6.0) /HPF Urine RBC (Auto) (0.0-6.0) /HPF U Epithel Cells (Auto) (0-13.0) /HPF Urine Opiates Screen Urine Methadone Screen Ur Barbiturates Screen Ur Phencyclidine Scrn Ur Amphetamines Screen U Benzodiazepines Scrn Urine Cocaine Screen U Marijuana (THC) Screen Drugs of Abuse Note Plasma/Serum Alcohol (0-0.07) % 05/31/21 05/31/21 05/31/21 Range/Units 16:51 18:42 18:42 WBC (4.5-11.0) K/mm3 RBC (3.65-5.03) M/mm3 Hgb (11.8-15.2) gm/dl Hct (35.5-45.6) % MCV (84-94) fl MCH (28-32) pg MCHC (32-34) % RDW (13.2-15.2) % Plt Count (140-440) K/mm3 Lymph % (Auto) (13.4-35.0) % [place] % (Auto) (0.0-7.3) % Eos % (Auto) (0.0-4.3) % Baso % (Auto) (0.0-1.8) % Lymph # (Auto) (1.2-5.4) K/mm3 [place] # (Auto) (0.0-0.8) K/mm3 Eos # (Auto) (0.0-0.4) K/mm3 Baso # (Auto) (0.0-0.1) K/mm3 Seg Neutrophils % (40.0-70.0) % Seg Neutrophils # (1.8-7.7) K/mm3 PT (12.2-14.9) Sec. INR (0.87-1.13) APTT (24.2-36.6) Sec. Sodium (137-145) mmol/L Potassium (3.6-5.0) mmol/L Chloride (98-107) mmol/L Carbon Dioxide (22-30) mmol/L Anion Gap mmol/L BUN (9-20) mg/dL Creatinine (0.8-1.3) mg/dL Estimated GFR ml/min BUN/Creatinine Ratio % Glucose (75-100) mg/dL Calcium (8.4-10.2) mg/dL Magnesium (1.7-2.3) mg/dL Total Bilirubin (0.1-1.2) mg/dL AST (5-40) units/L ALT (7-56) units/L Alkaline Phosphatase (35-129) units/L Total Protein (6.3-8.2) g/dL Albumin (3.9-5) g/dL Albumin/Globulin Ratio % Lipase (13-60) units/L Urine Color Colorless (Yellow) Urine Turbidity Clear (Clear) Urine pH 6.0 (5.0-7.0) Ur Specific [place] 1.001 L (1.003-1.030) Urine Protein <15 mg/dl (Negative) mg/dL Urine Glucose (UA) Neg (Negative) mg/dL Urine Ketones Neg (Negative) mg/dL Urine Blood Neg (Negative) Urine Nitrite Neg (Negative) Urine Bilirubin Neg (Negative) Urine Urobilinogen < 2.0 (<2.0) mg/dL Ur Leukocyte Esterase Neg (Negative) Urine WBC (Auto) 1.0 (0.0-6.0) /HPF Urine RBC (Auto) 2.0 (0.0-6.0) /HPF U Epithel Cells (Auto) < 1.0 (0-13.0) /HPF Urine Opiates Screen Negative Urine Methadone Screen Negative Ur Barbiturates Screen Negative Ur Phencyclidine Scrn Negative Ur Amphetamines Screen Negative U Benzodiazepines Scrn Negative Urine Cocaine Screen Negative U Marijuana (THC) Screen Negative Drugs of Abuse Note Disclamer Plasma/Serum Alcohol 0.28 H (0-0.07) % - Medical Decision Making [facility] protocol initiated 2012 placed Medically cleared Awaiting mental health evaluation Critical care attestation.: If time is entered above; I have spent that time in minutes in the direct care of this critically ill patient, excluding procedure time. ED Disposition Clinical Impression: Depression, Alcohol intoxication Disposition: [address] [place] [address] Is pt being admited?: No Does the pt Need Aspirin: No Condition: Stable
[2021-05-31 17:09] LABS: Basophils # (Auto) 0.1 K/mm3 (0.0-0.1); Basophils % (Auto) 1.7 % (0.0-1.8); Eosinophils # (Auto) 0.1 K/mm3 (0.0-0.4); Eosinophils % (Auto) 2.1 % (0.0-4.3); Hematocrit 31.8 % (35.5-45.6); Hemoglobin 9.9 gm/dl (11.8-15.2); Lymphocytes # (Auto) 1.8 K/mm3 (1.2-5.4); Lymphocytes % (Auto) 34.9 % (13.4-35.0); Mean Corpuscular HGB Conc 31 % (32-34); Monocytes # (Auto) 0.4 K/mm3 (0.0-0.8); Monocytes % (Auto) 8.5 % (0.0-7.3); Platelet Count 247 K/mm3 (140-440); Red Blood Count 4.63 M/mm3 (3.65-5.03)
[2021-05-31 17:10] LABS: Mean Corpuscular Volume 69 fl (84-94); Red Cell Distribution Width 22.9 % (13.2-15.2)
[2021-05-31 17:22] LABS: INR 0.99 (0.87-1.13)
[2021-05-31 17:23] LABS: Alanine Aminotransferase 56 units/L (7-56); Albumin 4.3 g/dL (3.9-5); BUN/Creatinine Ratio 4; Blood Urea Nitrogen 3 mg/dL (9-20); Calcium 8.2 mg/dL (8.4-10.2); Hemolysis Index 10; Partial Thromboplastin Time 34.7 Sec. (24.2-36.6)
[2021-05-31] MEDS ORDERED: THIAMINE 100 MG, FOLIC ACID 1 MG, MULTIPLE VITAMIN INJ, ADULT 10 ML in SODIUM CHLORIDE ... IV ONE (17:43)
[2021-05-31 18:50] LABS: Bilirubin,Urine NEG (Negative); Blood,Urine NEG (Negative); Color,Urine Colorless (Yellow); Protein,Urine <15 mg/dL mg/dL (Negative); Urobilinogen,Urine < 2.0 mg/dL (<2.0)
[2021-05-31 18:56] LABS: Amphetamine Screen,Urine Negative; Benzodiazepines Screen,Urine Negative; Cannabinoid Screen,Urine Negative; Cocaine Screen,Urine Negative; Methadone Screen,Urine Negative; Opiate Screen,Urine Negative
--- NOTE | 2021-06-01 09:18 | Consultation ---
History of Present Illness - Reason for Consult Consult date: 06/01/21 Reason for consult: ETOH Detox - History of Present Psychiatric Illness Ana Welch is a 61y/o male patient who states he came to the ER because he's "been drinking too much." When asked how much, the patient replies "as much as I can." He then laughs. He says he drinks "sometimes a gallon of crown, sometimes skyvodka." He says he has a history of PTSD. He says he couldn't think of the name of the medication he used to be on but is currently not taking it. The patient denies SI/HI or hallucinations of any kind. He says "no, I just have a drinking problem." The patient says sometimes he does get depressed. He says his last drink was yesterday, and he gets "the shakes" if he doesn't drink. He denies any other illicit drug use. PAST PSYCHIATRIC HISTORY: Diagnoses: PTSD Suicide attempts or Self-harm behavior: Denies Prior psychiatric hospitalizations: Denies Substance Abuse history: ETOH Previous psychiatric medications tried: could not recall Outpatient treatment: Denies PAST MEDICAL HISTORY: None reported or document Family Psychiatric History: None reported or documented SOCIAL HISTORY Marital Status: Single Living Arrangements: alone Employment Status: Disabled Access to guns/weapons: Denies Education: History of Abuse: Denies Legal History: unknown REVIEW OF SYSTEMS Constitutional: Negative for weight loss ENT: Negative for stridor Respiratory: Negative for cough or hemoptysis All other systems reviewed and are negative MENTAL STATUS EXAMINATION General Appearance and Behavior: Age appropriate, good hygiene, wearing appropriate clothes. calm, cooperative Cooperation: Cooperative Psychomotor Behavior: Psychomotor normal Mood: anxious Affect and affective range: Euthymic Thought Process: circumstantial Thought Content: None Speech: normal tone and pace Suicidal Ideation: Denies Homicidal Ideation: Denies Hallucinations: Denies Delusions: None elicited Impulse Control: Normal Insight and Judgment: Limited Memory: Limited Attention: attentive Orientation: a/o x 3 Assessment (1) ETOH Dependence (2) Major Depressive Disorder Current Visit: Yes Status: Acute Treatment Plan Zoloft 25mg po daily Trazodone 50mg po qhs Vistaril 50mg po BID prn anxiety Agree with CIWA The patient to comply with previously prescribed medications Risks, benefits and alternatives of medications discussed with the patient, questions answered and consent obtained from patient. PSYCHOTHERAPY: Supportive psychotherapy provided MEDICAL: Per primary team DELIRIUM PRECAUTIONS: Please re-orient patient frequently, keep lights on during the day, and minimize benzodiazepines and opiates as these medications could worsen patient's confusion. FAMILY READINESS SUPPORT ASSISTANT: Defer to primary DISPOSITION: Do not recommend acute psychiatric inpatient treatment. The patient understands that if SI/HI or fear of endangerment are to arise he is to seek immediate assistance. The printed circuit boards pinner to further discuss safety plan The printed circuit boards pinner to give the patient all necessary outpatient resources FOLLOW-UP: sign off. Thanks Case staffed with Dr. Chambers Medications and Allergies Allergies Allergy/AdvReac Type Severity Reaction Status Date / Time Penicillins Allergy Swelling Verified 05/31/21 15:09 sildenafil citrate Allergy Swelling Verified 05/31/21 15:09 [From Viagra] simvastatin Allergy Swelling Verified 05/31/21 15:09 Home Medications Medication Instructions Recorded Confirmed Last Taken Type Famotidine [Pepcid] 20 mg PO DAILY #5 tablet 10/10/15 01/17/18 1 Day Ago Rx ~06/16/17 Cholecalciferol Vit D3 [Vitamin D3 1,000 unit PO QDAY #30 tablet 12/09/16 01/17/18 1 Day Ago Rx 1,000 UNIT TAB] ~06/16/17 hydroCHLOROthiazide [HCTZ] 12.5 mg PO QDAY #30 capsule 12/09/16 01/17/18 1 Day Ago Rx ~06/16/17 Cyclobenzaprine [Flexeril] 10 mg PO BID PRN #10 tablet 01/16/18 Unknown Rx Dabigatran [Pradaxa] 150 mg PO BID 01/17/18 01/17/18 01/13/18 History HYDROcodone/ACETAMINOPHEN 1 each PO Q8H PRN 01/17/18 01/17/18 01/15/18 History [Hydrocodone-Acetamin 10-325 mg] amLODIPine 5 mg PO DAILY 01/17/18 01/17/18 Unknown History Sertraline [Zoloft] 25 mg PO QDAY #30 tab 06/01/21 Unknown Rx hydrOXYzine PAMOATE [Vistaril] 50 mg PO BID PRN #60 capsule 06/01/21 Unknown Rx traZODone [Desyrel] 50 mg PO QHS #30 tab 06/01/21 Unknown Rx Active Meds: Active Medications Chlordiazepoxide HCl (Chlordiazepoxide 25 Mg Cap) 50 mg PO Q1H PRN PRN Reason: CIWA-Ar 8-15 Chlordiazepoxide HCl (Chlordiazepoxide 25 Mg Cap) 100 mg PO Q1H PRN PRN Reason: CIWA-Ar 16-25 Lorazepam (Lorazepam 2 Mg/Ml Vial) 2 mg IV Q1H PRN PRN Reason: CIWA-Ar 8-15 Last Admin: 06/01/21 03:52 Dose: 2 mg Documented by: Lorazepam (Lorazepam 2 Mg/Ml Vial) 4 mg IV Q1H PRN PRN Reason: CIWA-Ar 16-25 Lorazepam (Lorazepam 2 Mg/Ml Vial) 4 mg IV Q15MIN PRN PRN Reason: CIWA-Ar >25 Mental Status Exam - Vital signs Last Vital Signs Temp 98.3 F 05/31/21 17:06 Pulse 88 06/01/21 04:40 Resp 17 06/01/21 04:40 BP 154/93 06/01/21 04:40 Pulse Ox 97 06/01/21 04:40 Results Result Diagrams: 05/31/21 16:51 05/31/21 16:51 Abnormal lab results 05/31/21 05/31/21 05/31/21 Range/Units 16:51 16:51 16:51 Hgb 9.9 L (11.8-15.2) gm/dl Hct 31.8 L (35.5-45.6) % MCV 69 L (84-94) fl MCH 22 L (28-32) pg MCHC 31 L (32-34) % RDW 22.9 H (13.2-15.2) % [place] % (Auto) 8.5 H (0.0-7.3) % BUN 3 L (9-20) mg/dL Calcium 8.2 L (8.4-10.2) mg/dL AST 180 H (5-40) units/L Total Protein 9.0 H (6.3-8.2) g/dL Ur Specific [place] (1.003-1.030) Plasma/Serum Alcohol 0.28 H (0-0.07) % 05/31/21 Range/Units 18:42 Hgb (11.8-15.2) gm/dl Hct (35.5-45.6) % MCV (84-94) fl MCH (28-32) pg MCHC (32-34) % RDW (13.2-15.2) % [place] % (Auto) (0.0-7.3) % BUN (9-20) mg/dL Calcium (8.4-10.2) mg/dL AST (5-40) units/L Total Protein (6.3-8.2) g/dL Ur Specific [place] 1.001 L (1.003-1.030) Plasma/Serum Alcohol (0-0.07) % All other labs normal.
[2021-06-01] MEDS ORDERED: SERTRALINE 25 MG TAB PO SCH (10:00)
--- NOTE | 2021-06-01 10:54 | Event Note ---
Date: 06/01/21 Patient is a 61-year-old gentleman who admits to having alcohol dependence issues. Patient has been given medications for depression and PTSD. Patient given outpatient resources for alcohol abuse. 2013 has been rescinded by our mental health colleagues. Their note is below. Patient discharged stable condition and is calm and cooperative and has reached an acceptable level of sobriety. Psychiatric Consult Note Patient Name: ANA WELCH Date of : 1960 Patient Status: Emergency Emergency Provider: TRUPTI DELAROSA Date: 06/01/21 09:14 Initialization Date: 06/01/21 09:14 History of Present Illness - Reason for Consult Consult date: 06/01/21 Reason for consult: ETOH Detox - History of Present Psychiatric Illness Ana Welch is a 61y/o male patient who states he came to the ER because he's "been drinking too much." When asked how much, the patient replies "as much as I can." He then laughs. He says he drinks "sometimes a gallon of crown, sometimes skyvodka." He says he has a history of PTSD. He says he couldn't think of the name of the medication he used to be on but is currently not taking it. The patient denies SI/HI or hallucinations of any kind. He says "no, I just have a drinking problem." The patient says sometimes he does get depressed. He says his last drink was yesterday, and he gets "the shakes" if he doesn't drink. He denies any other illicit drug use. PAST PSYCHIATRIC HISTORY: Diagnoses: PTSD Suicide attempts or Self-harm behavior: Denies Prior psychiatric hospitalizations: Denies Substance Abuse history: ETOH Previous psychiatric medications tried: could not recall Outpatient treatment: Denies PAST MEDICAL HISTORY: None reported or document Family Psychiatric History: None reported or documented SOCIAL HISTORY Marital Status: Single Living Arrangements: alone Employment Status: Disabled Access to guns/weapons: Denies Education: History of Abuse: Denies Legal History: unknown REVIEW OF SYSTEMS Constitutional: Negative for weight loss ENT: Negative for stridor Respiratory: Negative for cough or hemoptysis All other systems reviewed and are negative MENTAL STATUS EXAMINATION General Appearance and Behavior: Age appropriate, good hygiene, wearing appropriate clothes. calm, cooperative Cooperation: Cooperative Psychomotor Behavior: Psychomotor normal Mood: anxious Affect and affective range: Euthymic Thought Process: circumstantial Thought Content: None Speech: normal tone and pace Suicidal Ideation: Denies Homicidal Ideation: Denies Hallucinations: Denies Delusions: None elicited Impulse Control: Normal Insight and Judgment: Limited Memory: Limited Attention: attentive Orientation: a/o x 3 Assessment (1) ETOH Dependence (2) Major Depressive Disorder Current Visit: Yes Status: Acute Treatment Plan Zoloft 25mg po daily Trazodone 50mg po qhs Vistaril 50mg po BID prn anxiety Agree with CIWA The patient to comply with previously prescribed medications Risks, benefits and alternatives of medications discussed with the patient, questions answered and consent obtained from patient. PSYCHOTHERAPY: Supportive psychotherapy provided MEDICAL: Per primary team DELIRIUM PRECAUTIONS: Please re-orient patient frequently, keep lights on during the day, and minimize benzodiazepines and opiates as these medications could worsen patient's confusion. RESEARCH PROJECT COORDINATOR: Defer to primary DISPOSITION: Do not recommend acute psychiatric inpatient treatment. The patient understands that if SI/HI or fear of endangerment are to arise he is to seek immediate assistance. The barrel maker to further discuss safety plan The barrel maker to give the patient all necessary outpatient resources FOLLOW-UP: sign off. Thanks [facility] staffed with Dr. Chambers
[2021-06-01 11:43] VITALS: BP 178/103
[2021-06-01] MEDS ORDERED: traZODone 50 MG TAB PO SCH (22:00)
--- NOTE | 2021-06-02 13:56 | Electrocardiograph Report ---
[facility] Test Date: 2021-05-31 Test Time: 18:13:44 Pat Name: CECIL ELIAS Department: Room: Gender: M Revenue Collector: JEMIMA : 1960 Requested By: TRUPTI DELAROSA Order Number: [id number] Reading MD: Gianna Menjivar Measurements Intervals [place] Rate: 92 P: 72 UT: 181 QRS: -16 QRSD: 101 T: 81 QT: 396 QTc: 490 Interpretive Statements Sinus rhythm Nonspecific T abnormalities, lateral leads No previous ECG available for comparison Electronically Signed On 06-02-2021 13:56:41 EDT by Gianna Menjivar
== END 2021-06-01 11:44 | disposition home or self-care (01) ==
LOC: ED 15:05
DX: F32.A Depression, unspecified (principal); F10.129 Alcohol abuse with intoxication, unspecified; I10 Essential (primary) hypertension; Z88.0 Allergy status to penicillin; Z88.8 Allergy status to other drugs, medicaments and biological substances
CPT/HCPCS: 36415; 80053; 80307; 81001; 83690; 83735; 85025; 85610; 85730; 93005; 96365; 96375; 99284; J2060; J3411; J7030; 80320; 99283; G0480

== ENCOUNTER 2021-08-26 10:46 | Emergency (ER) | payer MEDICARE, OTHER ==
[2021-08-26] MEDS ORDERED: ONDANSETRON 4 MG/2 ML INJ IV ONE (11:20)
[2021-08-26] MEDS ORDERED: LACTATED RINGERS 1,000 ML IV ONE (11:20)
--- NOTE | 2021-08-26 11:21 | Emergency Department Report ---
ED Alcohol HPI - General Chief Complaint: Alcohol Stated Complaint: DETOX,NOT EATING/SLEEPING Time Seen by Provider: 08/26/21 11:10 Source: patient Mode of arrival: Ambulatory Limitations: No Limitations - History of Present Illness Initial Comments: Patient presents seeking alcohol withdrawal protection and treatment. He thinks that he needs detox. Patient states that he has been drinking since the holidays. He relates multiple problems without family. He states that he has been drinking anything that he can get. His last drink was this morning. He tells me that he is in withdrawal right now although he is not tremulous or tachycardic. He states that he "feels something inside" that is wrong. He is not suicidal or homicidal. He is not delusional. Patient admits that he was drinking this morning and cannot tell me what he was drinking. He cannot tell me his allergies. He states that he just feels like something is wrong. He believes that he might be dehydrated. He reports that he was vomiting, although that was later in the course that he reported vomiting. He denies hematemesis or coffee- ground emesis. He states that he "hurts all over." - Related Data Home Medications Medication Instructions Recorded Confirmed Last Taken Dabigatran [Pradaxa] 150 mg PO BID 01/17/18 01/17/18 01/13/18 amLODIPine 5 mg PO DAILY 01/17/18 01/17/18 Unknown Previous Rx's Medication Instructions Recorded Last Taken Type Famotidine [Pepcid] 20 mg PO DAILY #5 tablet 10/10/15 1 Day Ago Rx ~06/16/17 Cholecalciferol Vit D3 [Vitamin D3 1,000 unit PO QDAY #30 tablet 12/09/16 1 Day Ago Rx 1,000 UNIT TAB] ~06/16/17 hydroCHLOROthiazide [HCTZ] 12.5 mg PO QDAY #30 capsule 12/09/16 1 Day Ago Rx ~06/16/17 Sertraline [Zoloft] 25 mg PO QDAY #30 tab 06/01/21 Unknown Rx traZODone [Desyrel] 50 mg PO QHS #30 tab 06/01/21 Unknown Rx Ondansetron [Zofran ODT TAB] 8 mg PO Q8HR PRN #20 tab.rapdis 08/26/21 Unknown Rx hydrOXYzine PAMOATE [Vistaril] 50 mg PO BID PRN #60 capsule 08/26/21 Unknown Rx Allergies Allergy/AdvReac Type Severity Reaction Status Date / Time Penicillins Allergy Swelling Verified 08/26/21 11:04 sildenafil citrate Allergy Swelling Verified 08/26/21 11:04 [From Viagra] simvastatin Allergy Swelling Verified 08/26/21 11:04 ED Review of Systems ROS: Stated complaint: DETOX,NOT EATING/SLEEPING Other details as noted in HPI Comment: All other systems reviewed and negative Constitutional: denies: fever Eyes: denies: eye pain ENT: denies: throat pain Respiratory: denies: cough Cardiovascular: denies: chest pain Endocrine: denies: unexplained weight loss Gastrointestinal: as per HPI Genitourinary: denies: dysuria Musculoskeletal: as per HPI Skin: denies: rash Neurological: denies: headache Hematological/Lymphatic: denies: easy bruising ED Past Medical Hx - Past Medical History Hx Hypertension: Yes Hx Congestive Heart Failure: No Hx Diabetes: No Hx Deep Vein Thrombosis: Yes Hx Pulmonary Embolism: Yes Hx Arthritis: Yes Hx Psychiatric Treatment: Yes (PTSD/ DEPRESSION) Hx Asthma: No Hx COPD: No Additional medical history: Alcohol dependence. diverticulitis. fibromyalgia - Surgical History Hx Cholecystectomy: Yes Additional Surgical History: gastric bypass surgery. 2011. 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 - Family History Family history: hypertension - Social History Smoking Status: Never Smoker - Medications Home Medications: Home Medications Medication Instructions Recorded Confirmed Last Taken Type Famotidine [Pepcid] 20 mg PO DAILY #5 tablet 10/10/15 01/17/18 1 Day Ago Rx ~06/16/17 Cholecalciferol Vit D3 [Vitamin D3 1,000 unit PO QDAY #30 tablet 12/09/16 01/17/18 1 Day Ago Rx 1,000 UNIT TAB] ~06/16/17 hydroCHLOROthiazide [HCTZ] 12.5 mg PO QDAY #30 capsule 12/09/16 01/17/18 1 Day Ago Rx ~06/16/17 Dabigatran [Pradaxa] 150 mg PO BID 01/17/18 01/17/18 01/13/18 History amLODIPine 5 mg PO DAILY 01/17/18 01/17/18 Unknown History Sertraline [Zoloft] 25 mg PO QDAY #30 tab 06/01/21 Unknown Rx traZODone [Desyrel] 50 mg PO QHS #30 tab 06/01/21 Unknown Rx Ondansetron [Zofran ODT TAB] 8 mg PO Q8HR PRN #20 tab.rapdis 08/26/21 Unknown Rx hydrOXYzine PAMOATE [Vistaril] 50 mg PO BID PRN #60 capsule 08/26/21 Unknown Rx ED Physical Exam - General Limitations: No Limitations, Other (Pulse ox noted and normal) General appearance: alert, in no apparent distress, other (Sleeping but easily arousable. He smells of alcohol.) - Head Head exam: Present: atraumatic, normocephalic - Eye Eye exam: Present: normal appearance, EOMI. Absent: scleral icterus - ENT ENT exam: Present: mucous membranes dry, normal external ear exam - Neck Neck exam: Present: normal inspection. Absent: meningismus - Respiratory Respiratory exam: Present: normal lung sounds bilaterally. Absent: respiratory distress - Cardiovascular Cardiovascular Exam: Present: normal rhythm, tachycardia - GI/Abdominal GI/Abdominal exam: Present: soft. Absent: distended, tenderness - Extremities Exam Extremities exam: Present: normal capillary refill - Back Exam Back exam: Absent: CVA tenderness (R), CVA tenderness (L) - Neurological Exam Neurological exam: Present: alert, oriented X3, CN II-XII intact. Absent: motor sensory deficit - Psychiatric Psychiatric exam: Present: normal affect, normal mood - Skin Skin exam: Present: warm, dry ED Course Vital Signs 08/26/21 08/26/21 08/26/21 11:02 11:57 12:27 Temperature 98 F Pulse Rate 103 H 103 H 100 H Respiratory 20 17 12 Rate Blood Pressure 142/88 148/88 157/96 [Left] O2 Sat by Pulse 100 99 97 Oximetry - Reevaluation(s) Reevaluation #1: 08/26/21 11:21 IV and labs were ordered. Old records noted. Reevaluation #2: 08/26/21 12:50 Labs are noted and reviewed. Patient was given thiamine and folic acid. He does not have evidence of overt alcohol withdrawal. He is not tremulous or tachycardic. There is no evidence of DTs. He was given outpatient referral and resources. He was instructed to seek help for medical detox. He does not require admission for alcohol detox at this time. ED Medical Decision Making - Lab Data Result diagrams: 08/26/21 11:53 08/26/21 11:53 - Medical Decision Making Patient presents with request for alcohol detox. He is acutely intoxicated and does not have evidence of withdrawal. CIWA score is 0. He does not require admission at this time. Patient was given outpatient resources. We have had a discussion about substance abuse and lifestyle changes. He is not suicidal homicidal. There is no metabolic derangement. Critical Care Time: No Critical care attestation.: If time is entered above; I have spent that time in minutes in the direct care of this critically ill patient, excluding procedure time. ED Disposition Clinical Impression: Alcohol abuse Anemia Qualifiers: Anemia type: unspecified type Qualified Code(s): D64.9 - Anemia, unspecified Disposition: 01 HOME / SELF CARE / HOMELESS Is pt being admited?: No Condition: Stable Instructions: Alcohol Use Disorder, Alcohol Abuse and Dependence Information, Adult Additional Instructions: Drink plenty water. Take multivitamins. Stop drinking alcohol. Seek medical help to get into detox. Go to one of the detox centers as referred. Prescriptions: hydrOXYzine PAMOATE [Vistaril] 50 mg PO BID PRN #60 capsule PRN Reason: Anxiety Ondansetron [Zofran ODT TAB] 8 mg PO Q8HR PRN #20 tab.rapdis PRN Reason: Nausea
[2021-08-26 12:13] LABS: Mean Corpuscular HGB Conc 29 % (32-34); Platelet Count 219 K/mm3 (140-440); Red Blood Count 3.77 M/mm3 (3.65-5.03)
[2021-08-26 12:15] LABS: Hematocrit 26.1 % (35.5-45.6); Hemoglobin 7.5 gm/dl (11.8-15.2); Mean Corpuscular Volume 69 fl (84-94)
[2021-08-26 12:16] LABS: Red Cell Distribution Width 20.8 % (13.2-15.2)
[2021-08-26 12:37] LABS: Alanine Aminotransferase 8 units/L (7-56); Albumin 3.9 g/dL (3.9-5); BUN/Creatinine Ratio 7; Blood Urea Nitrogen 6 mg/dL (9-20); Calcium 7.5 mg/dL (8.4-10.2); Hemolysis Index 23
[2021-08-26] MEDS ORDERED: THIAMINE 100 MG in SODIUM CHLORIDE 0.9% 50 ML IV ONE (13:36)
[2021-08-26] MEDS ORDERED: FOLIC ACID 1 MG in SODIUM CHLORIDE 0.9% 50 ML IV ONE (13:37)
[2021-08-26 14:07] VITALS: BP 141/78
== END 2021-08-26 14:21 | disposition home or self-care (01) ==
LOC: ED 10:46
DX: F10.20 Alcohol dependence, uncomplicated (principal); D64.9 Anemia, unspecified; F43.12 Post-traumatic stress disorder, chronic; Z88.0 Allergy status to penicillin; Z88.8 Allergy status to other drugs, medicaments and biological substances; Z91.09 Other allergy status, other than to drugs and biological substances; Z90.49 Acquired absence of other specified parts of digestive tract; Z79.899 Other long term (current) drug therapy; X58.XXXA Exposure to other specified factors, initial encounter; Y93.89 Activity, other specified; Y92.89 Other specified places as the place of occurrence of the external cause; Y99.8 Other external cause status
CPT/HCPCS: 36415; 80053; 83735; 85027; 96365; 96375; 99283; J2405; J3411; J3490; J7120; 80320; G0480

== ENCOUNTER 2022-05-01 16:50 | Emergency (ER) | payer MEDICARE, OTHER ==
[2022-05-01 17:04] VITALS: BP 133/80
== END 2022-05-02 01:00 | disposition left against medical advice (07) ==
LOC: ED 16:50
DX: R31.9 Hematuria, unspecified (principal); Z53.21 Procedure and treatment not carried out due to patient leaving prior to being seen by health care provider